=== PATIENT | female | born 1980 | race American Indian/Alaskan Native ===

== ENCOUNTER 2018-04-20 08:21 | Emergency (ER) | payer OTHER ==
[2018-04-20] MEDS ORDERED: Sodium Chloride 0.9% 10 ML Syringe FLUSH PRN (08:53)
[2018-04-20] MEDS ORDERED: Sodium Chloride 0.9% 1,000 ML IV SCH (09:00)
[2018-04-20] MEDS ORDERED: 50% Dextrose in Water 50 ML Syringe IVPUSH ONE (09:59)
[2018-04-20] MEDS ORDERED: 50% Dextrose in Water 50 ML Syringe ONE (10:00)
--- NOTE | 2018-04-20 12:08 | EDM.PDOC ---
ED HPI GENERAL MEDICAL PROBLEM - General Chief Complaint: Diabetic Complaint Stated Complaint: [facility] Time Seen by Provider: 04/20/18 08:39 Source of Information: Reports: Patient, EMS, RN Notes Reviewed - History of Present Illness INITIAL COMMENTS - FREE TEXT/NARRATIVE: 38-year-old female has been brought to our emergency department by [facility] after found to be hypoglycemic. She is a resident at the [facility]. She does have known diabetes on insulin. She was last known well at time of medication check last evening around 8:30 PM. When she did not show up this morning for medication her cell was checked and she was found on the floor unresponsive. Blood sugar was checked and found to be in the neighborhood of 40. [facility] did initiate transport but was at BLS status today. [facility] was called with [facility], IV access obtained and given one half a.m. D50 IV. With that her blood sugar did improve and she was starting to arouse but not alert on arrival to our ED. She was noted to have extremely wet clothing from apparent diaphoresis. At time of my exam patient was cold but answering simple questions and obeying simple commands appropriately. She denied chest pain headache abdominal pain, nausea or difficulty breathing. She does not remember if she ate a normal supper last evening or not. - Related Data Allergies Allergy/AdvReac Type Severity Reaction Status Date / Time codeine Allergy Difficulty Verified 04/20/18 08:42 Breathing fluoxetine [From Prozac] Allergy Difficulty Verified 04/20/18 08:42 Breathing sertraline [From Zoloft] Allergy Difficulty Verified 04/20/18 08:42 Breathing Past Medical History Genitourinary History: Reports: Other (See Below) Other Genitourinary History: chronic kidney disease Endocrine/Metabolic History: Reports: Diabetes, Type II Social & Family History - Tobacco Use Smoking Status *Q: Unknown Ever Smoked Second Hand Smoke Exposure: No - Recreational Drug Use Recreational Drug Use: Yes Other Recreational Drug Type: history of cannabis use, stimulant dependence. ED ROS GENERAL - Review of Systems Review Of Systems: See Below Constitutional: Reports: Chills, Diaphoresis, Other (Feels cold). Denies: Fever HEENT: Denies: Throat Pain Respiratory: Denies: Shortness of Breath Cardiovascular: Denies: Chest Pain GI/Abdominal: Denies: Abdominal Pain, Nausea, Vomiting Musculoskeletal: Reports: No Symptoms Skin: Reports: Diaphoresis Neurological: Reports: Dizziness ED EXAM GENERAL NO PERIP PULSE - Physical Exam Exam: See Below General Appearance: Other (Awake, still somewhat drowsy on arrival to ED) Eye Exam: Bilateral Eye: PERRL Throat/Mouth: Normal Inspection, Other (No injury to tongue) Head: Atraumatic Neck: Supple Respiratory/Chest: No Respiratory Distress, Lungs Clear, Normal Breath Sounds Cardiovascular: Regular Rate, Rhythm GI/Abdominal: Soft, Non-Tender Extremities: Normal Inspection Neurological: Other (Awake but somewhat drowsy on arrival to ED, answer simple questions, obeys simple commands) Course - Vital Signs Last Recorded V/S: Last Vital Signs Temp 97.9 F 04/20/18 12:20 Pulse 89 04/20/18 12:20 Resp 16 04/20/18 12:20 BP 127/73 04/20/18 12:20 Pulse Ox 100 04/20/18 12:20 - Orders/Labs/Meds Orders: Active Orders 24 hr Category Date Time Status POC Glucose [Blood Glucose Check, Bedside] [RC] ONETIME Care 04/20/18 08:53 Active Peripheral IV Care [RC] . DIRECTED Care 04/20/18 08:54 Active Peripheral IV Insertion Adult [OM.PC] Stat Oth 04/20/18 08:53 Ordered Labs: Laboratory Tests 04/20/18 04/20/18 04/20/18 Range/Units 09:10 09:10 09:10 WBC 5.94 (3.98-10.04) K/mm3 RBC 3.85 L (3.98-5.22) M/mm3 Hgb 11.0 L (11.2-15.7) gm/L Hct 30.7 L (34.1-44.9) % MCV 79.7 (79.4-94.8) fl MCH 28.6 (25.6-32.2) pg MCHC 35.8 H (32.2-35.5) g/dl RDW Std Deviation 37.4 (36.4-46.3) fL Plt Count 276 (182-369) K/mm3 MPV 9.2 L (9.4-12.3) fl Neut % (Auto) 49.8 (34.0-71.1) % Lymph % (Auto) 33.2 (19.3-51.7) % [place]ell % (Auto) 8.6 (4.7-12.5) % Eos % (Auto) 7.7 H (0.7-5.8) Baso % (Auto) 0.5 (0.1-1.2) % Neut # (Auto) 2.96 (1.56-6.13) K/mm3 Lymph # (Auto) 1.97 (1.18-3.74) K/mm3 Cabell # (Auto) 0.51 H (0.24-0.36) K/mm3 Eos # (Auto) 0.46 H (0.04-0.36) K/mm3 Baso # (Auto) 0.03 (0.01-0.08) K/mm3 Sodium 136 (136-145) mEq/L Potassium 3.9 (3.5-5.1) mEq/L Chloride 105 (98-107) mEq/L Carbon Dioxide 22 (21-32) mEq/L Anion Gap 12.9 (5-15) BUN 35 H (7-18) mg/dL Creatinine 1.8 H (0.55-1.02) mg/dL Est Cr Clr Drug Dosing 40.81 mL/min Estimated GFR (MDRD) 31 (>60) mL/min BUN/Creatinine Ratio 19.4 H (14-18) Glucose 85 (74-106) mg/dL POC Glucose (70-105) mg/dL Lactic Acid 0.4 (0.4-2.0) mmol/L Calcium 8.6 (8.5-10.1) mg/dL Total Bilirubin 0.2 (0.2-1.0) mg/dL AST 40 H (15-37) U/L ALT 48 (14-59) U/L Alkaline Phosphatase 108 (46-116) U/L Total Protein 6.8 (6.4-8.2) g/dl Albumin 1.5 L (3.4-5.0) g/dl Globulin 5.3 gm/dL Albumin/Globulin Ratio 0.3 L (1-2) 04/20/18 Range/Units 11:26 WBC (3.98-10.04) K/mm3 RBC (3.98-5.22) M/mm3 Hgb (11.2-15.7) gm/L Hct (34.1-44.9) % MCV (79.4-94.8) fl MCH (25.6-32.2) pg MCHC (32.2-35.5) g/dl RDW Std Deviation (36.4-46.3) fL Plt Count (182-369) K/mm3 MPV (9.4-12.3) fl Neut % (Auto) (34.0-71.1) % Lymph % (Auto) (19.3-51.7) % Cabell % (Auto) (4.7-12.5) % Eos % (Auto) (0.7-5.8) Baso % (Auto) (0.1-1.2) % Neut # (Auto) (1.56-6.13) K/mm3 Lymph # (Auto) (1.18-3.74) K/mm3 Cabell # (Auto) (0.24-0.36) K/mm3 Eos # (Auto) (0.04-0.36) K/mm3 Baso # (Auto) (0.01-0.08) K/mm3 Sodium (136-145) mEq/L Potassium (3.5-5.1) mEq/L Chloride (98-107) mEq/L Carbon Dioxide (21-32) mEq/L Anion Gap (5-15) BUN (7-18) mg/dL Creatinine (0.55-1.02) mg/dL Est Cr Clr Drug Dosing mL/min Estimated GFR (MDRD) (>60) mL/min BUN/Creatinine Ratio (14-18) Glucose (74-106) mg/dL POC Glucose 132 H (70-105) mg/dL Lactic Acid (0.4-2.0) mmol/L Calcium (8.5-10.1) mg/dL Total Bilirubin (0.2-1.0) mg/dL AST (15-37) U/L ALT (14-59) U/L Alkaline Phosphatase (46-116) U/L Total Protein (6.4-8.2) g/dl Albumin (3.4-5.0) g/dl Globulin gm/dL Albumin/Globulin Ratio (1-2) Meds: Medications Discontinued Medications Generic Name Dose Route Start Last Admin Trade Name Freq PRN Reason Stop Dose Admin Dextrose/Water 25 ml 04/20/18 09:59 04/20/18 10:05 Dextrose 50% In Water IVPUSH 04/20/18 10:00 25 ml ONETIME ONE Administration Dextrose/Water Confirm 04/20/18 10:00 04/20/18 10:08 Dextrose 50% In Water Administered 04/20/18 10:01 Not Given Dose 50 ml .ROUTE .STK-MED ONE Sodium Chloride 1,000 mls @ 999 mls/hr 04/20/18 09:00 04/20/18 09:55 Normal Saline IV 999 mls/hr ONETIME GARETH Administration Sodium Chloride 10 ml 04/20/18 08:53 04/20/18 10:07 Saline Flush FLUSH 10 ml ASDIRECTED PRN Administration Keep Vein Open - Re-Assessments/Exams Free Text/Narrative Re-Assessment/Exam: 04/20/18 18:57 Initial temp for head was only 85, patient was already covered with warm like a second there of your started at time of my exam not long after patient arrival. We did get a rectal exam a short time after that which was only 89. 4 we did continue with the bear hugger, warm blankets, warmed IV the bags along her trunk and her temp did, over the next 2-3 hours to normal. Within a few hours of arrival she was eating drinking, back to normal. Discharge instr. as documented. Departure - Departure Time of Disposition: 12:07 Disposition: Home, Self-Care 01 Condition: Fair Clinical Impression: Hypoglycemia Hypothermia Qualifiers: Encounter type: initial encounter Qualified Code(s): T68.XXXA - Hypothermia, initial encounter - Discharge Information Instructions: Hypothermia, Hypoglycemia, [id number] Referrals: PCP,None [Primary Care Provider] - Forms: ED Department Discharge Additional Instructions: Eat regular meals and snacks, continue current medications as prescribed, follow -up with your medical provider as needed - My Orders Last 24 Hours: My Active Orders 04/20/18 08:53 POC Glucose [Blood Glucose Check, Bedside] [RC] ONETIME Peripheral IV Insertion Adult [OM.PC] Stat 04/20/18 08:54 Peripheral IV Care [RC] . DIRECTED - Assessment/Plan Last 24 Hours: My Active Orders 04/20/18 08:53 POC Glucose [Blood Glucose Check, Bedside] [RC] ONETIME Peripheral IV Insertion Adult [OM.PC] Stat 04/20/18 08:54 Peripheral IV Care [RC] . DIRECTED
== END 2018-04-20 12:25 | disposition home or self-care (01) ==
LOC: JD.ED 08:21
DX: E11.649 Type 2 diabetes mellitus with hypoglycemia without coma (principal); T68.XXXA Hypothermia, initial encounter; E11.22 Type 2 diabetes mellitus with diabetic chronic kidney disease; Z88.5 Allergy status to narcotic agent; Z88.8 Allergy status to other drugs, medicaments and biological substances; N18.9 Chronic kidney disease, unspecified
CPT/HCPCS: 36415; 80053; 82962; 83605; 85025; 96361; 96374; 99285; J7040; J7060; 99284

== ENCOUNTER 2018-06-16 19:00 | Emergency (ER) | payer OTHER ==
[2018-06-16] MEDS ORDERED: Sodium Chloride 0.9% 10 ML Syringe FLUSH PRN (20:13)
[2018-06-16] MEDS ORDERED: Ketorolac 30 MG/ML SDV IVPUSH ONE (20:14)
[2018-06-16] MEDS ORDERED: cefTRIAXone 2 GM in Sodium Chloride 0.9% 100 ML IV ONE (20:14)
--- NOTE | 2018-06-16 20:33 | EDM.PDOC ---
ED HPI GENERAL MEDICAL PROBLEM - General Chief Complaint: Lower Extremity Injury/Pain Stated Complaint: LEFT FOOT/TOE PAIN SWELLING Time Seen by Provider: 06/16/18 19:48 Source of Information: Reports: Patient, RN Notes Reviewed History Limitations: Reports: No Limitations - History of Present Illness INITIAL COMMENTS - FREE TEXT/NARRATIVE: Patient is a 38-year-old female who presents to the ED for the evaluation of left fourth toe pain. The patient is an inmate at the [facility]. The patient has a sore to the fourth toe on her left foot and it has been present for around one month now. The nurses at the facility have been using iodoform packing and doing wound changes twice a day. Today the patient noticed swelling to the left foot/ankle with increased pain that shoots up to her left knee. The patient notes she is diabetic and takes insulin. The patient denies any fever/chills, nausea/vomiting/diarrhea, chest pain, shortness of breath. She would rate her pain at a 7 out of 10 today. Left Feet Pain Score (Numeric/FACES): 7 - Related Data Allergies Allergy/AdvReac Type Severity Reaction Status Date / Time codeine Allergy Difficulty Verified 06/16/18 19:35 Breathing fluoxetine [From Prozac] Allergy Difficulty Verified 06/16/18 19:35 Breathing sertraline [From Zoloft] Allergy Difficulty Verified 06/16/18 19:35 Breathing shellfish derived Allergy Hives Verified 06/16/18 19:35 Home Meds: Home Meds Carvedilol [Coreg] 25 mg PO DAILY 06/16/18 [History] DULoxetine [Cymbalta] 30 mg PO BID 06/16/18 [History] Doxycycline [Vibramycin] 100 mg PO BID #28 tab 06/16/18 [Rx] Furosemide 40 mg PO DAILY 06/16/18 [History] Insulin Aspart [NovoLOG] 0 units SQ TID 06/16/18 [History] Insulin Detemir [Levemir] 15 units SQ DAILY 06/16/18 [History] Lisinopril 20 mg PO BID 06/16/18 [History] Mineral Oil/Petrolatum,White [Dermacerin] 1 gm TOP TID 06/16/18 [History] Pantoprazole [ProTONIX] 40 mg PO DAILY 06/16/18 [History] amLODIPine Besylate [Amlodipine Besylate] 10 mg PO DAILY 06/16/18 [History] atorvaSTATin [Lipitor] 80 mg PO BEDTIME 06/16/18 [History] hydrOXYzine HCl [hydrOXYzine] 25 mg PO BID 06/16/18 [History] Past Medical History HEENT History: Reports: Impaired Vision Cardiovascular History: Reports: High Cholesterol, Hypertension Respiratory History: Reports: Asthma Gastrointestinal History: Reports: Other (See Below) Other Gastrointestinal History: liver disease Genitourinary History: Reports: Other (See Below) Other Genitourinary History: chronic kidney disease 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: Musculoskeletal History: Reports: Other (See Below) Other Musculoskeletal History: broke L foot Neurological History: Reports: Headaches, Chronic, Neuropathy, Diabetic Psychiatric History: Reports: Addiction, Anxiety, Depression Endocrine/Metabolic History: Reports: Diabetes, Type II Immunologic History: Reports: Other (See Below) Other Immunologic History: viral hep C Oncologic (Cancer) History: Reports: Other (See Below) Other Oncologic History: stomach Dermatologic History: Reports: Eczema - Infectious Disease History Infectious Disease History: Reports: Chicken Pox, Hepatitis C - Past Surgical History HEENT Surgical History: Reports: Tonsillectomy, Other (See Below) Other HEENT Surgeries/Procedures: wisdom teeth Female Surgical History: Reports: Section, Other (See Below) Other Female Surgeries/Procedures: hysterectomy Social & Family History - Family History Family Medical History: Noncontributory - Tobacco Use Smoking Status *Q: Former Smoker Used Tobacco, but Quit: Yes Month/Year Tobacco Last Used: 02/2018 - Caffeine Use Caffeine Use: Reports: Coffee, Tea - Recreational Drug Use Recreational Drug Use: No Review of Systems - Review of Systems Review Of Systems: See Below Constitutional: Reports: No Symptoms Eyes: Reports: No Symptoms Ears: Reports: No Symptoms Nose: Reports: No Symptoms Mouth/Throat: Reports: No Symptoms Respiratory: Reports: No Symptoms Cardiovascular: Reports: No Symptoms GI/Abdominal: Reports: No Symptoms Genitourinary: Reports: No Symptoms Musculoskeletal: Reports: Foot Pain (Left foot), Joint Pain (left ankle and 4th left toe), Joint Swelling (left ankle, foot and 4th left toe) Skin: Reports: No Symptoms Neurological: Reports: No Symptoms Psychiatric: Reports: No Symptoms ED EXAM, GENERAL - Physical Exam Exam: See Below Exam Limited By: No Limitations General Appearance: Alert, WD/WN, Mild Distress (patient is in obvious pain) Eye Exam: Bilateral Eye: EOMI, Normal Inspection, PERRL Ears: Normal External Exam Nose: Normal Inspection Throat/Mouth: Normal Inspection, Normal Oropharynx, Normal Voice, No Airway Compromise Head: Atraumatic, Normocephalic Neck: Normal Inspection Respiratory/Chest: No Respiratory Distress, Lungs Clear, Normal Breath Sounds, No Accessory Muscle Use, Chest Non-Tender Cardiovascular: Normal Peripheral Pulses, Regular Rate, Rhythm, No Murmur GI/Abdominal: Normal Bowel Sounds, Soft, Non-Tender, No Distention Extremities: Joint Swelling (left 4th toe, left foot and ankle. this is at least 2+ edema), Limited Range of Motion (d/t pain and swelling in left 4th toe ), Increased Warmth (left foot) Neurological: Alert, Oriented, Normal Cognition, No Motor/Sensory Deficits Psychiatric: Normal Affect, Normal Mood Skin Exam: Warm, Dry, Intact, Normal Color, No Rash Course - Vital Signs Last Recorded V/S: Last Vital Signs Temp 97.7 F 06/16/18 19:29 Pulse 81 06/16/18 19:29 Resp 20 06/16/18 19:29 BP 121/79 06/16/18 19:29 Pulse Ox 99 06/16/18 19:29 - Orders/Labs/Meds Orders: Active Orders 24 hr Category Date Time Status Peripheral IV Care [RC] . DIRECTED Care 06/16/18 20:13 Ordered Toes Fourth Digit Lt T3 [CR] Stat Exams 06/16/18 20:12 Ordered Toes Fourth Digit Lt T3 [CR] Stat Exams 06/16/18 20:12 Stop Req Sodium Chloride 0.9% [Saline Flush] Med 06/16/18 20:13 Ordered 10 ml FLUSH ASDIRECTED PRN Peripheral IV Insertion Adult [OM.PC] Routine Oth 06/16/18 20:13 Ordered Medication Orders Sodium Chloride (Saline Flush) 10 ml FLUSH ASDIRECTED PRN PRN Reason: Keep Vein Open Last Admin: 06/16/18 20:30 Dose: 10 ml Meds: Medications Generic Name Dose Route Start Last Admin Trade Name Freq PRN Reason Stop Dose Admin Sodium Chloride 10 ml 06/16/18 20:13 06/16/18 20:30 Saline Flush FLUSH 10 ml ASDIRECTED PRN Administration Keep Vein Open Discontinued Medications Generic Name Dose Route Start Last Admin Trade Name Miko PRN Reason Stop Dose Admin Ceftriaxone Sodium 2 gm/ 100 mls @ 200 mls/hr 06/16/18 20:14 06/16/18 20:29 Sodium Chloride IV 06/16/18 20:43 200 mls/hr Q24H ONE Administration Ketorolac Tromethamine 30 mg 06/16/18 20:14 06/16/18 20:29 Toradol IVPUSH 06/16/18 20:15 30 mg ONETIME ONE Administration - Re-Assessments/Exams Free Text/Narrative Re-Assessment/Exam: 06/16/18 20:35 Patient presents to the ED for the evaluation of left fourth toe and left foot pain. This is developed into cellulitis of the left foot. I have ordered a toe x-ray to make sure this is not osteomyelitis due to the length of time that the sore is present. Have ordered 2 g IV Rocephin with 30 mg IV Toradol for management. Will send a prescription for doxycycline 100 mg twice a day for 14 days to the [place] pharmacy. 06/16/18 21:33 Pt. x-rays have returned and reviewed with Dr. Castellano, he thinks there may be a small bony erosion on the lateral side of the 4th left digit. He recommends that the patient follow up with Dr. Hernandez for a debridement of the wound. Departure - Departure Time of Disposition: 21:28 Disposition: DC/Tfer to Court of Law En 21 Condition: Fair Clinical Impression: Toe infection - Discharge Information *PRESCRIPTION DRUG MONITORING PROGRAM REVIEWED*: No *COPY OF PRESCRIPTION DRUG MONITORING REPORT IN PATIENT MIGUEL: No Prescriptions: Doxycycline [Vibramycin] 100 mg PO BID #28 tab Instructions: Crutch Use, Adult, [id number], Cellulitis, Adult, [id number] Referrals: Christie Wade PA-C [Primary Care Provider] - Forms: ED Department Discharge, ED Return to Work/School Form Additional Instructions: You have been evaluated in the ED tonight for your left fourth toe pain and left foot swelling. You have been given IV antibiotics in the ED for your cellulitis. You have been prescribed an antibiotic, doxycycline 100 mg 1 tab twice a day for 14 days. Recommend that you follow up with Dr. Hernandez, radio interference investigator, for a debridement of the wound. He can be reached at [phone]. You may take ibuprofen or Tylenol for further pain relief. Please return to the ED if your symptoms change or worsen. - My Orders Last 24 Hours: My Active Orders 06/16/18 20:12 Toes Fourth Digit Lt T3 [CR] Stat Toes Fourth Digit Lt T3 [CR] Stat 06/16/18 20:13 Peripheral IV Care [RC] . DIRECTED Sodium Chloride 0.9% [Saline Flush] 10 ml FLUSH ASDIRECTED PRN Peripheral IV Insertion Adult [OM.PC] Routine - Assessment/Plan Last 24 Hours: My Active Orders 06/16/18 20:12 Toes Fourth Digit Lt T3 [CR] Stat Toes Fourth Digit Lt T3 [CR] Stat 06/16/18 20:13 Peripheral IV Care [RC] . DIRECTED Sodium Chloride 0.9% [Saline Flush] 10 ml FLUSH ASDIRECTED PRN Peripheral IV Insertion Adult [OM.PC] Routine
--- NOTE | 2018-06-17 06:32 | CR ---
Left fourth toe: Three views centered to the left fourth toe were obtained. Erosion identified within the middle phalanx of the fourth toe. Soft tissue swelling is seen. No acute fracture or other abnormality is identified. Impression: 1. Erosion as noted above. Soft tissue swelling. Findings raise the possibility of cellulitis and osteomyelitis. Please correlate if patient has correlating symptoms. Diagnostic code #3
== END 2018-06-16 21:55 ==
LOC: JD.ED 19:00
DX: L03.116 Cellulitis of left lower limb (principal); E78.00 Pure hypercholesterolemia, unspecified; I10 Essential (primary) hypertension; J45.909 Unspecified asthma, uncomplicated; F41.9 Anxiety disorder, unspecified; F32.9 Major depressive disorder, single episode, unspecified; E11.40 Type 2 diabetes mellitus with diabetic neuropathy, unspecified; Z87.891 Personal history of nicotine dependence; Z88.9 Allergy status to unspecified drugs, medicaments and biological substances; Z88.8 Allergy status to other drugs, medicaments and biological substances; Z91.013 Allergy to seafood; Z79.4 Long term (current) use of insulin; Z79.899 Other long term (current) drug therapy
CPT/HCPCS: 73660; 96365; 96375; 99283; J0696; J1885; J7030

== ENCOUNTER 2018-07-17 19:12 | Inpatient (IN) | payer OTHER ==
--- NOTE | 2018-07-17 19:36 | EDM.PDOC ---
ED HPI GENERAL MEDICAL PROBLEM - General Chief Complaint: Lower Extremity Injury/Pain Stated Complaint: foot pain Time Seen by Provider: 07/17/18 19:25 - History of Present Illness INITIAL COMMENTS - FREE TEXT/NARRATIVE: 38-year-old female returns emergency room with continued left foot problems Patient was seen here month ago started on antibiotics for this ongoing draining area from her left fourth toe medial aspect. She was started on doxycycline and was to follow-up with the foot Dr. it is unclear to me whether that's been done. Someone from the care home ordered a ankle CT that showed osteomyelitis probably involving the fourth metatarsal and digit the forefoot cannot be completely evaluated. Patient is not having any fevers or chills and does not recall having any specialty follow-up for this. She denies any fevers or chills no systemic signs of illness. Left Feet Pain Score (Numeric/FACES): 7 - Related Data Allergies Allergy/AdvReac Type Severity Reaction Status Date / Time codeine Allergy Difficulty Verified 07/17/18 19:22 Breathing fluoxetine [From Prozac] Allergy Difficulty Verified 07/17/18 19:22 Breathing sertraline [From Zoloft] Allergy Difficulty Verified 07/17/18 19:22 Breathing shellfish derived Allergy Hives Verified 07/17/18 19:22 Home Meds: Home Meds Carvedilol [Coreg] 25 mg PO DAILY 06/16/18 [History] DULoxetine [Cymbalta] 30 mg PO BID 06/16/18 [History] Doxycycline [Vibramycin] 100 mg PO BID #28 tab 06/16/18 [Rx] Furosemide 40 mg PO DAILY 06/16/18 [History] Insulin Aspart [NovoLOG] 0 units SQ BID 06/16/18 [History] Insulin Detemir [Levemir] 15 units SQ DAILY 06/16/18 [History] Lisinopril 20 mg PO BID 06/16/18 [History] Mineral Oil/Petrolatum,White [Dermacerin] 1 gm TOP TID 06/16/18 [History] Pantoprazole [ProTONIX] 40 mg PO DAILY 06/16/18 [History] amLODIPine Besylate [Amlodipine Besylate] 10 mg PO DAILY 06/16/18 [History] atorvaSTATin [Lipitor] 80 mg PO BEDTIME 06/16/18 [History] hydrOXYzine HCl [hydrOXYzine] 25 mg PO BID 06/16/18 [History] Past Medical History HEENT History: Reports: Impaired Vision Cardiovascular History: Reports: High Cholesterol, Hypertension Respiratory History: Reports: Asthma Gastrointestinal History: Reports: Other (See Below) Other Gastrointestinal History: liver disease Genitourinary History: Reports: Other (See Below) Other Genitourinary History: chronic kidney disease [employer] History: Reports: Musculoskeletal History: Reports: Other (See Below) Other Musculoskeletal History: broke L foot Neurological History: Reports: Headaches, Chronic, Neuropathy, Diabetic Psychiatric History: Reports: Addiction, Anxiety, Depression Endocrine/Metabolic History: Reports: Diabetes, Type II Immunologic History: Reports: Other (See Below) Other Immunologic History: viral hep C Oncologic (Cancer) History: Reports: Other (See Below) Other Oncologic History: stomach Dermatologic History: Reports: Eczema - Infectious Disease History Infectious Disease History: Reports: Chicken Pox, Hepatitis C - Past Surgical History HEENT Surgical History: Reports: Tonsillectomy, Other (See Below) Other HEENT Surgeries/Procedures: wisdom teeth Female Surgical History: Reports: Section, Other (See Below) Other Female Surgeries/Procedures: hysterectomy Social & Family History - Family History Family Medical History: Noncontributory - Caffeine Use Caffeine Use: Reports: Coffee, Tea Review of Systems - Review of Systems Review Of Systems: See Below Constitutional: Reports: No Symptoms Eyes: Reports: No Symptoms Nose: Reports: No Symptoms Respiratory: Reports: No Symptoms Cardiovascular: Reports: No Symptoms GI/Abdominal: Reports: No Symptoms Genitourinary: Reports: No Symptoms ED EXAM, GENERAL - Physical Exam Exam: See Below Exam Limited By: No Limitations General Appearance: Alert Head: Atraumatic, Normocephalic Respiratory/Chest: No Respiratory Distress, Lungs Clear, Normal Breath Sounds Cardiovascular: Regular Rate, Rhythm, No Edema, No Murmur GI/Abdominal: Normal Bowel Sounds, Soft, Non-Tender Extremities: Other (Examination of her foot shows swelling on the plantar surface and the dorsum the lesser degree she has drainage from the medial second toe small amount nothing really to culture at this point it appears to have been draining pulses are not palpable minimal neurologic sensation) Course - Vital Signs Last Recorded V/S: Last Vital Signs Temp 36.9 C 07/17/18 19:31 Pulse 69 07/17/18 19:31 Resp 13 07/17/18 19:31 BP 92/59 L 07/17/18 19:31 Pulse Ox 96 07/17/18 19:31 - Orders/Labs/Meds Orders: Active Orders 24 hr Category Date Time Status Foot wo Cont Lt [CT] Stat Exams 07/17/18 19:42 Taken CULTURE BLOOD [BC] Stat Lab 07/17/18 22:12 Ordered CULTURE BLOOD [BC] Stat Lab 07/17/18 22:12 Ordered TYPE AND SCREEN [BBK] Stat Lab 07/17/18 21:01 Received Levofloxacin/Dextrose 5%-Water [Levaquin in D5W 750 MG/ Med 07/17/18 22:30 Active 150 ML] 750 mg Premix Bag 1 bag IV Q48H Vancomycin 1.25 gm Med 07/17/18 22:30 Active Sodium Chloride 0.9% [Normal Saline] 250 ml IV Q24H metroNIDAZOLE/Normal Saline [Flagyl 500 MG in NS 100 ML Med 07/17/18 22:15 Active ] 500 mg Premix Bag 1 bag IV Q8H Blood Culture x2 Reflex Set [OM.PC] Stat Oth 07/17/18 22:12 Ordered Transfuse PRBC [Transfuse Red Blood Cells] [COMM] Stat Oth 07/17/18 22:04 Ordered Medication Orders Metronidazole 500 mg/ Premix 100 mls @ 100 mls/hr IV Q8H GARETH Vancomycin HCl 1.25 gm/ Sodium (Chloride) 250 mls @ 250 mls/hr IV Q24H GARETH Levofloxacin/Dextrose 750 mg/ (Premix) 150 mls @ 100 mls/hr IV Q48H [facility] Labs: Laboratory Tests 07/17/18 07/17/18 Range/Units 21:01 21:01 WBC 43.08 H (3.98-10.04) K/mm3 RBC 2.40 L (3.98-5.22) M/mm3 Hgb 6.5 L* D (11.2-15.7) gm/L Hct 19.9 L (34.1-44.9) % MCV 82.9 (79.4-94.8) fl MCH 27.1 (25.6-32.2) pg MCHC 32.7 (32.2-35.5) g/dl RDW Std Deviation 36.2 L (36.4-46.3) fL Plt Count 279 (182-369) K/mm3 MPV 9.2 L (9.4-12.3) fl Neutrophils % (Manual) 78 H (40-60) % Band Neutrophils % 13 H (0-10) % Lymphocytes % (Manual) 3 L (20-40) % Atypical Lymphs % 0 % Monocytes % (Manual) 4 (2-10) % Eosinophils % (Manual) 1 (0.7-5.8) % Basophils % (Manual) 1 (0.1-1.2) Hypersegmented Neuts Few Toxic Granulation 1+ slight Dohle Bodies Few Platelet Estimate Adequate Plt Morphology Comment See note RBC Morph Comment Normal Sodium 131 L (136-145) mEq/L Potassium 3.5 (3.5-5.1) mEq/L Chloride 101 (98-107) mEq/L Carbon Dioxide 19 L (21-32) mEq/L Anion Gap 14.5 (5-15) BUN 40 H (7-18) mg/dL Creatinine 3.1 H (0.55-1.02) mg/dL Est Cr Clr Drug Dosing 23.69 mL/min Estimated GFR (MDRD) 17 (>60) mL/min BUN/Creatinine Ratio 12.9 L (14-18) Glucose 73 L (74-106) mg/dL Calcium 8.2 L (8.5-10.1) mg/dL Total Bilirubin 0.2 (0.2-1.0) mg/dL AST 21 (15-37) U/L ALT 25 (14-59) U/L Alkaline Phosphatase 152 H (46-116) U/L Total Protein 6.2 L (6.4-8.2) g/dl Albumin 1.0 L (3.4-5.0) g/dl Globulin 5.2 gm/dL Albumin/Globulin Ratio 0.2 L (1-2) Meds: Medications Generic Name Dose Route Start Last Admin Trade Name Freq PRN Reason Stop Dose Admin Metronidazole 500 mg/ Premix 100 mls @ 100 mls/hr 07/17/18 22:15 IV Q8H GARETH Vancomycin HCl 1.25 gm/ Sodium 250 mls @ 250 mls/hr 07/17/18 22:30 Chloride IV Q24H GARETH Levofloxacin/Dextrose 750 mg/ 150 mls @ 100 mls/hr 07/17/18 22:30 Premix IV Q48H GARETH Discontinued Medications Generic Name Dose Route Start Last Admin Trade Name Miko PRN Reason Stop Dose Admin Vancomycin HCl 1.5 gm/ Sodium 250 mls @ 250 mls/hr 07/17/18 22:15 Chloride IV Q12H GARETH - Re-Assessments/Exams Free Text/Narrative Re-Assessment/Exam: 07/17/18 22:03 DT confirms osteomyelitis involving the fourth metatarsal the middle and proximal phalanx of the fourth toe. Case discussed with Dr. Das today patient will be admitted to the hospitalist service and Dr. Das today we'll see tomorrow will start IV antibiotics. Anemia and toe infection discussed with Dr. Armijo who will assume care of the patient. 07/17/18 22:10 Patient's creatinine is 3.1 nursing will discuss all her dosing of the antibiotics with pharmacy before giving the medication Departure - Departure Time of Disposition: 22:12 Disposition: Admitted As Inpatient 65 Clinical Impression: Renal insufficiency, Anemia - Discharge Information Referrals: Kobe Galan MD [Primary Care Provider] - Forms: ED Department Discharge - My Orders Last 24 Hours: My Active Orders 07/17/18 19:42 Foot wo Cont Lt [CT] Stat 07/17/18 21:01 TYPE AND SCREEN [BBK] Stat 07/17/18 22:04 Transfuse PRBC [Transfuse Red Blood Cells] [COMM] Stat 07/17/18 22:12 CULTURE BLOOD [BC] Stat CULTURE BLOOD [BC] Stat Blood Culture x2 Reflex Set [OM.PC] Stat 07/17/18 22:15 metroNIDAZOLE/Normal Saline [Flagyl 500 MG in NS 100 ML] 500 mg Premix Bag 1 bag IV Q8H 07/17/18 22:30 Levofloxacin/Dextrose 5%-Water [Levaquin in D5W 750 MG/150 ML] 750 mg Premix Bag 1 bag IV Q48H Vancomycin 1.25 gm Sodium Chloride 0.9% [Normal Saline] 250 ml IV Q24H - Assessment/Plan Last 24 Hours: My Active Orders 07/17/18 19:42 Foot wo Cont Lt [CT] Stat 07/17/18 21:01 TYPE AND SCREEN [BBK] Stat 07/17/18 22:04 Transfuse PRBC [Transfuse Red Blood Cells] [COMM] Stat 07/17/18 22:12 CULTURE BLOOD [BC] Stat CULTURE BLOOD [BC] Stat Blood Culture x2 Reflex Set [OM.PC] Stat 07/17/18 22:15 metroNIDAZOLE/Normal Saline [Flagyl 500 MG in NS 100 ML] 500 mg Premix Bag 1 bag IV Q8H 07/17/18 22:30 Levofloxacin/Dextrose 5%-Water [Levaquin in D5W 750 MG/150 ML] 750 mg Premix Bag 1 bag IV Q48H Vancomycin 1.25 gm Sodium Chloride 0.9% [Normal Saline] 250 ml IV Q24H
[2018-07-17] MEDS ORDERED: metroNIDAZOLE/Normal Saline 500 MG in Premix Bag 1 BAG IV SCH (22:15)
[2018-07-17] MEDS ORDERED: Levofloxacin/Dextrose 5%-Water 750 MG in Premix Bag 1 BAG IV SCH (22:30)
[2018-07-17] MEDS ORDERED: Albuterol/Ipratropium 3.0-0.5 MG/3 ML Neb Soln NEB PRN (23:20)
[2018-07-17] MEDS ORDERED: Bisacodyl 5 MG Tab PO PRN (23:20)
[2018-07-17] MEDS ORDERED: HYDROmorphone 1 MG/ML Syringe IVPUSH PRN (23:20)
[2018-07-17] MEDS ORDERED: LORazepam 2 MG/ML SDV IV PRN (23:20)
[2018-07-17] MEDS ORDERED: Docusate Sodium 100 MG Cap PO PRN (23:20)
[2018-07-17] MEDS ORDERED: Polyethylene Glycol 3350 Powder 17 GM Packet PO PRN (23:20)
[2018-07-17] MEDS ORDERED: Temazepam 7.5 MG Cap PO PRN (23:20)
[2018-07-17] MEDS ORDERED: hydrALAZINE 20 MG/ML SDV IVPUSH PRN (23:20)
[2018-07-17] MEDS ORDERED: Ondansetron 4 MG/2 ML SDV IV PRN (23:20)
[2018-07-17] MEDS ORDERED: Metoprolol Tartrate 5 MG/5 ML SDV IVPUSH PRN (23:20)
[2018-07-17] MEDS ORDERED: 50% Dextrose in Water 50 ML Syringe IVPUSH PRN (23:26)
[2018-07-17] MEDS ORDERED: Sodium Chloride 0.9% 500 ML IV ONE (23:30)
[2018-07-17] MEDS ORDERED: Vancomycin 500 MG SDV IV SCH (23:30)
[2018-07-17] MEDS ORDERED: Sodium Chloride 0.9% 1,000 ML IV SCH ×2 (23:30)
[2018-07-18] MEDS: Acetaminophen/HYDROcodone 325-5 MG Tab PO PRN ×3 (00:01→09:19)
[2018-07-18] MEDS ORDERED: HYDROmorphone 1 MG/ML Syringe IVPUSH PRN ×2 (00:35→22:00)
[2018-07-18] MEDS: Temazepam 15 MG Cap PO PRN (01:36)
[2018-07-18] MEDS: Potassium Chloride 20 MEQ Tab.ER PO SCH ×2 (01:36→05:53)
[2018-07-18] MEDS ORDERED: Potassium Chloride 10 MEQ in Premix Bag 1 BAG IV SCH (02:00)
[2018-07-18] MEDS ORDERED: Levofloxacin/Dextrose 5%-Water 750 MG in Premix Bag 1 BAG IV SCH (02:00)
[2018-07-18] MEDS ORDERED: Piperacillin/Tazobactam 4.5 GM in Sodium Chloride 0.9% 100 ML IV ONE (03:00)
[2018-07-18] MEDS: Pantoprazole 40 MG Tab.CR PO SCH (05:52)
[2018-07-18 07:44] LABS: HEMOGLOBIN A1C 6.8 % (4.50-6.20)
[2018-07-18] MEDS: Insulin Lispro 100 Units/ML 3 ML Vial SUBCUT SCH ×4 (08:51→22:18)
[2018-07-18] MEDS ORDERED: Lisinopril 20 MG Tab PO SCH (09:00)
[2018-07-18] MEDS ORDERED: amLODIPine 10 MG Tab PO SCH (09:00)
[2018-07-18] MEDS ORDERED: Carvedilol 12.5 MG Tab PO SCH (09:00)
[2018-07-18] MEDS ORDERED: Furosemide 40 MG Tab PO SCH (09:00)
[2018-07-18] MEDS: DULoxetine 30 MG Cap PO SCH ×2 (09:14→20:44)
[2018-07-18] MEDS: Saccharomyces Boulardii (Probiotic) 250 MG Cap PO SCH ×2 (09:14→20:44)
[2018-07-18] MEDS: hydrOXYzine HCl 25 MG Tab PO SCH ×2 (09:15→20:43)
[2018-07-18] MEDS: Insulin Glarg,Human.Rec.Analog 100 UNIT/ML ML SUBCUT SCH (09:16)
[2018-07-18] MEDS: Enoxaparin 30 MG/0.3 ML Syringe SUBCUT SCH (09:17)
[2018-07-18] MEDS ORDERED: Midodrine 5 MG Tab PO STA (09:52)
[2018-07-18] MEDS ORDERED: Sodium Chloride 0.9% 1,000 ML IV ONE ×2 (09:53→22:15)
[2018-07-18] MEDS ORDERED: Potassium Chloride 20 MEQ Tab.ER PO ONE (10:00)
[2018-07-18] MEDS ORDERED: Magnesium Sulfate/Water 4 GM in Premix Bag 1 BAG IV ONE (10:00)
[2018-07-18] MEDS: HYDROmorphone 1 MG/ML Syringe IVPUSH PRN ×2 (10:26→14:15)
--- NOTE | 2018-07-18 11:43 | CT ---
CT left foot Technique: Multiple axial sections were obtained through the left foot. Reconstructed sagittal and coronal images were obtained. Comparison: Prior plain film study of 06/16/18. Findings: Destructive lesion is noted within the distal shaft and head of the fourth metatarsal compatible with osteomyelitis. Pathologic fracture is present. Proximal and mid phalanx show destruction within the fourth toe. Small erosion also noted within the head of the fifth metatarsal. Diffuse surrounding soft tissue swelling is present. Impression: 1. Bony destruction of the middle and proximal phalanx of the fourth toe as well as of the distal shaft and head of the fourth metatarsal. Findings most likely represent osteomyelitis. Findings have significantly worsened from previous exam. 2. Minimal erosion within the distal fifth metatarsal head compatible with additional early area of osteomyelitis. 3. Diffuse soft tissue swelling. Diagnostic code #5 I agree with preliminary report from [facility], finalized on 07/17/18, 10:46 PM Central Time [facility]
[2018-07-18] MEDS: Piperacillin/Tazobactam 4.5 GM in Sodium Chloride 0.9% 100 ML IV SCH ×2 (12:20→18:37)
[2018-07-18] MEDS: Midodrine 5 MG Tab PO SCH ×2 (12:20→17:40)
[2018-07-18] MEDS: Sodium Chloride 0.9% 1,000 ML IV SCH ×3 (13:22→21:23)
--- NOTE | 2018-07-18 15:37 | MR ---
MRI left foot Technique: T1, fat suppressed inversion recovery sagittal; T2 and T2 fat suppressed coronal; T1 and T2 fat suppressed axial Technologist's note: Patient had extremely hard time holding still, sequences were repeated many times Comparison: Prior CT study of the left foot dated 07/17/18. Findings: Motion artifact is seen diminishing details. Bone marrow edema is noted within the shaft of the fourth metatarsal. Mild bone marrow edema is seen within the distal fifth metatarsal. Diffuse soft tissue swelling is seen within the foot which is asymmetrically worse around the fourth and fifth digits. No definite fluid collections are seen to indicate abscess. No additional bony abnormality is appreciated. Impression: 1. Bone marrow edema within the shaft of the fourth metatarsal as well as within the distal fifth metatarsal. Findings are compatible with osteomyelitis. 2. Diffuse soft tissue swelling asymmetrically worse around the fourth and fifth toes. This is compatible with prominent cellulitis. Diagnostic code #3
--- NOTE | 2018-07-18 15:52 | PCM.HP ---
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 She was seen in ED about a month ago due to draining lesion at the medial aspect of her foot. She was treated with oral Doxycycline and was told to follow up with Dr. Hernandez. Unfortunately, she did not get around to it. However a CT scan of her foot revealed osteomyelitis. She comes back to ED for worsening symptoms. She denies having any fever or chills. Her initial work up shows a CBC remarkable for WBC of 43.08, RBC of 2.40, Hgb of 6.5, Hct of 19.9, RDW of 36.2, MPV of 9.2, Neutrophils of 78%, with Bands of 13% and Lymphocytes of 3%. Her Chemistry is significant for Na of 131, CO2 of 19 , BUN of 40, Cr of 3.1, BS of 73, Ca of 8.2, Alk Phos, 152, CRP of 20.2, Total Protein of 6.2, and Albumin of 1.0. Her UA is not suggestive of UTI. Foot CT scan report read osteolytic process affecting 4th digit. Foot MRI report reads bone marrow edema within the shaft of the fourth metatarsal as well as within the distal 5th metatarsal. Findings are compatible with osteomyelitis. Diffuse soft tissue swelling asymmetrically worse around the 4th and 5th toes. This is compatible with prominent cellulitis. Patient was admitted overnight for Left Foot Cellulitis with Osteomyelitis. Left Feet Pain Score (Numeric/FACES): 7 - Related Data Allergies/Adverse Reactions: Allergies Allergy/AdvReac Type Severity Reaction Status Date / Time codeine Allergy Difficulty Verified 07/18/18 02:55 Breathing fluoxetine [From Prozac] Allergy Difficulty Verified 07/18/18 02:55 Breathing sertraline [From Zoloft] Allergy Difficulty Verified 07/18/18 02:55 Breathing shellfish derived Allergy Hives Verified 07/18/18 02:55 Home Medications: Home Meds Carvedilol [Coreg] 25 mg PO DAILY 06/16/18 [History] DULoxetine [Cymbalta] 30 mg PO BID 06/16/18 [History] Furosemide 40 mg PO DAILY 06/16/18 [History] Insulin Aspart [NovoLOG] 0 units SQ BID 06/16/18 [History] Insulin Detemir [Levemir] 15 units SQ DAILY 06/16/18 [History] Lisinopril 20 mg PO BID 06/16/18 [History] Pantoprazole [ProTONIX] 40 mg PO DAILY 06/16/18 [History] amLODIPine Besylate [Amlodipine Besylate] 10 mg PO DAILY 06/16/18 [History] atorvaSTATin [Lipitor] 80 mg PO BEDTIME 06/16/18 [History] hydrOXYzine HCl [hydrOXYzine] 25 mg PO BID 06/16/18 [History] Acetaminophen [Tylenol] 650 mg PO Q4HR PRN 07/18/18 [History] Ibuprofen [Ibu] 600 mg PO TID 07/18/18 [History] Non-Formulary Medication [NF Drug] 500 mg PO TID 07/18/18 [History] Past Medical History HEENT History: Reports: Impaired Vision Cardiovascular History: Reports: High Cholesterol, Hypertension Respiratory History: Reports: Asthma Gastrointestinal History: Reports: Other (See Below) Other Gastrointestinal History: liver disease Genitourinary History: Reports: Other (See Below) Other Genitourinary History: chronic kidney disease 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: Musculoskeletal History: Reports: Other (See Below) Other Musculoskeletal History: broke L foot Neurological History: Reports: Headaches, Chronic, Neuropathy, Diabetic Psychiatric History: Reports: Addiction, Anxiety, Depression Endocrine/Metabolic History: Reports: Diabetes, Type II Hematologic History: Reports: Anemia Other Hematologic History: pt states back in 2000 dx with anemia Immunologic History: Reports: Other (See Below) Other Immunologic History: viral hep C Oncologic (Cancer) History: Reports: Other (See Below) Other Oncologic History: stomach Dermatologic History: Reports: Eczema - Infectious Disease History Infectious Disease History: Reports: Chicken Pox, Hepatitis C - Past Surgical History HEENT Surgical History: Reports: Tonsillectomy, Other (See Below) Other HEENT Surgeries/Procedures: wisdom teeth Cardiovascular Surgical History: Reports: None Female Surgical History: Reports: Section, Other (See Below) Other Female Surgeries/Procedures: hysterectomy Social & Family History - Family History Family Medical History: Noncontributory - Tobacco Use Smoking Status *Q: Former Smoker Used Tobacco, but Quit: Yes Month/Year Tobacco Last Used: mar 2018 - Caffeine Use Caffeine Use: Reports: Coffee, Tea - Recreational Drug Use Recreational Drug Use: No H&P Review of Systems - Review of Systems: Review Of Systems: ROS reveals no pertinent complaints other than HPI. Exam - Exam Exam: See Below - Vital Signs Vital Signs: Last Vital Signs Temp 37.4 C 07/18/18 09:15 Pulse 70 07/18/18 11:52 Resp 16 07/18/18 11:52 BP 83/53 L 07/18/18 11:53 Pulse Ox 95 07/18/18 11:52 Weight: 84.64 kg - Exam General: Alert, Oriented, Moderate Distress HEENT: Conjunctiva Clear, EACs Clear, EOMI, Hearing Intact, Mucosa Moist & [place] , Nares Patent, Normal Nasal Septum, Posterior Pharynx Clear, Pupils Equal, Pupils Reactive Neck: Supple, Trachea Midline Lungs: Clear to Auscultation, Normal Respiratory Effort Cardiovascular: Regular Rate, Regular Rhythm GI/Abdominal Exam: Normal Bowel Sounds, Soft, Non-Tender, No Organomegaly, No Distention, No Abnormal Bruit, No Mass, Pelvis Stable (Female) Exam: Deferred Rectal (Female) Exam: Deferred Back Exam: Normal Inspection, Decreased Range of Motion Extremities: Normal Range of Motion, Pedal Edema Peripheral Pulses: 2+: Posterior Tibial (R), Dorsalis Pedis (R) Skin: Warm, Dry, Intact Skin Alteration Location (Drawings Not To Scale): 1 - swollen, erythematous and tender on palpation Neuro Extensive - Mental Status: Oriented x3, Normal Cognition, Memory Intact Neuro Extensive - Motor, Sensory, Reflexes: CN II-XII Intact, Abnormal Gait Psychiatric: Alert, Normal Affect, Normal Mood - Patient Data Lab Results Last 24 hrs: Laboratory Results - last 24 hr 07/17/18 07/17/18 07/17/18 Range/Units 21:01 21:01 21:01 WBC 43.08 H (3.98-10.04) K/mm3 RBC 2.40 L (3.98-5.22) M/mm3 Hgb 6.5 L* D (11.2-15.7) gm/L Hct 19.9 L (34.1-44.9) % MCV 82.9 (79.4-94.8) fl MCH 27.1 (25.6-32.2) pg MCHC 32.7 (32.2-35.5) g/dl RDW Std Deviation 36.2 L (36.4-46.3) fL Plt Count 279 (182-369) K/mm3 MPV 9.2 L (9.4-12.3) fl Neut % (Auto) (34.0-71.1) % Lymph % (Auto) (19.3-51.7) % [place] % (Auto) (4.7-12.5) % Eos % (Auto) (0.7-5.8) Baso % (Auto) (0.1-1.2) % Neut # (Auto) (1.56-6.13) K/mm3 Lymph # (Auto) (1.18-3.74) K/mm3 [place] # (Auto) (0.24-0.36) K/mm3 Eos # (Auto) (0.04-0.36) K/mm3 Baso # (Auto) (0.01-0.08) K/mm3 Neutrophils % (Manual) 78 H (40-60) % Band Neutrophils % 13 H (0-10) % Lymphocytes % (Manual) 3 L (20-40) % Atypical Lymphs % 0 % Monocytes % (Manual) 4 (2-10) % Eosinophils % (Manual) 1 (0.7-5.8) % Basophils % (Manual) 1 (0.1-1.2) Manual Slide Review Hypersegmented Neuts Few Toxic Granulation 1+ slight Dohle Bodies Few Platelet Estimate Adequate Plt Morphology Comment See note RBC Morph Comment Normal Sodium 131 L (136-145) mEq/L Potassium 3.5 (3.5-5.1) mEq/L Chloride 101 (98-107) mEq/L Carbon Dioxide 19 L (21-32) mEq/L Anion Gap 14.5 (5-15) BUN 40 H (7-18) mg/dL Creatinine 3.1 H (0.55-1.02) mg/dL Est Cr Clr Drug Dosing 23.69 mL/min Estimated GFR (MDRD) 17 (>60) mL/min BUN/Creatinine Ratio 12.9 L (14-18) Glucose 73 L (74-106) mg/dL POC Glucose (70-105) mg/dL Hemoglobin A1c (4.50-6.20) % Lactic Acid (0.4-2.0) mmol/L Calcium 8.2 L (8.5-10.1) mg/dL Magnesium (1.8-2.4) mg/dl Total Bilirubin 0.2 (0.2-1.0) mg/dL AST 21 (15-37) U/L ALT 25 (14-59) U/L Alkaline Phosphatase 152 H (46-116) U/L C-Reactive Protein (<1.0) mg/dL Total Protein 6.2 L (6.4-8.2) g/dl Albumin 1.0 L (3.4-5.0) g/dl Globulin 5.2 gm/dL Albumin/Globulin Ratio 0.2 L (1-2) Triglycerides (<150) mg/dL Cholesterol (<200) mg/dL LDL Cholesterol Direct (<100) mg/dL HDL Cholesterol (40-59) mg/dL MRSA (PCR) Blood Type O POSITIVE Gel Antibody Screen Negative Crossmatch See Detail 07/17/18 07/18/18 07/18/18 Range/Units 21:01 03:07 06:10 WBC 40.26 H (3.98-10.04) K/mm3 RBC 3.04 L (3.98-5.22) M/mm3 Hgb 8.6 L D (11.2-15.7) gm/L Hct 25.2 L (34.1-44.9) % MCV 82.9 (79.4-94.8) fl MCH 28.3 (25.6-32.2) pg MCHC 34.1 (32.2-35.5) g/dl RDW Std Deviation 38.5 (36.4-46.3) fL Plt Count 288 (182-369) K/mm3 MPV 9.3 L (9.4-12.3) fl Neut % (Auto) 90.5 H (34.0-71.1) % Lymph % (Auto) 3.1 L (19.3-51.7) % [place] % (Auto) 4.8 (4.7-12.5) % Eos % (Auto) 0.8 (0.7-5.8) Baso % (Auto) 0.0 L (0.1-1.2) % Neut # (Auto) 36.44 H (1.56-6.13) K/mm3 Lymph # (Auto) 1.23 (1.18-3.74) K/mm3 [place] # (Auto) 1.92 H (0.24-0.36) K/mm3 Eos # (Auto) 0.33 (0.04-0.36) K/mm3 Baso # (Auto) 0.02 (0.01-0.08) K/mm3 Neutrophils % (Manual) (40-60) % Band Neutrophils % (0-10) % Lymphocytes % (Manual) (20-40) % Atypical Lymphs % % Monocytes % (Manual) (2-10) % Eosinophils % (Manual) (0.7-5.8) % Basophils % (Manual) (0.1-1.2) Manual Slide Review Abnormal smear Hypersegmented Neuts Toxic Granulation Dohle Bodies Platelet Estimate Plt Morphology Comment RBC Morph Comment Sodium (136-145) mEq/L Potassium (3.5-5.1) mEq/L Chloride (98-107) mEq/L Carbon Dioxide (21-32) mEq/L Anion Gap (5-15) BUN (7-18) mg/dL Creatinine (0.55-1.02) mg/dL Est Cr Clr Drug Dosing mL/min Estimated GFR (MDRD) (>60) mL/min BUN/Creatinine Ratio (14-18) Glucose (74-106) mg/dL POC Glucose (70-105) mg/dL Hemoglobin A1c (4.50-6.20) % Lactic Acid (0.4-2.0) mmol/L Calcium (8.5-10.1) mg/dL Magnesium (1.8-2.4) mg/dl Total Bilirubin (0.2-1.0) mg/dL AST (15-37) U/L ALT (14-59) U/L Alkaline Phosphatase (46-116) U/L C-Reactive Protein 20.2 H* (<1.0) mg/dL Total Protein (6.4-8.2) g/dl Albumin (3.4-5.0) g/dl Globulin gm/dL Albumin/Globulin Ratio (1-2) Triglycerides (<150) mg/dL Cholesterol (<200) mg/dL LDL Cholesterol Direct (<100) mg/dL HDL Cholesterol (40-59) mg/dL MRSA (PCR) Negative Blood Type Gel Antibody Screen Crossmatch 07/18/18 07/18/18 07/18/18 Range/Units 06:10 06:10 08:40 WBC (3.98-10.04) K/mm3 RBC (3.98-5.22) M/mm3 Hgb (11.2-15.7) gm/L Hct (34.1-44.9) % MCV (79.4-94.8) fl MCH (25.6-32.2) pg MCHC (32.2-35.5) g/dl RDW Std Deviation (36.4-46.3) fL Plt Count (182-369) K/mm3 MPV (9.4-12.3) fl Neut % (Auto) (34.0-71.1) % Lymph % (Auto) (19.3-51.7) % [place] % (Auto) (4.7-12.5) % Eos % (Auto) (0.7-5.8) Baso % (Auto) (0.1-1.2) % Neut # (Auto) (1.56-6.13) K/mm3 Lymph # (Auto) (1.18-3.74) K/mm3 [place] # (Auto) (0.24-0.36) K/mm3 Eos # (Auto) (0.04-0.36) K/mm3 Baso # (Auto) (0.01-0.08) K/mm3 Neutrophils % (Manual) (40-60) % Band Neutrophils % (0-10) % Lymphocytes % (Manual) (20-40) % Atypical Lymphs % % Monocytes % (Manual) (2-10) % Eosinophils % (Manual) (0.7-5.8) % Basophils % (Manual) (0.1-1.2) Manual Slide Review Hypersegmented Neuts Toxic Granulation Dohle Bodies Platelet Estimate Plt Morphology Comment RBC Morph Comment Sodium 130 L (136-145) mEq/L Potassium 3.3 L (3.5-5.1) mEq/L Chloride 99 (98-107) mEq/L Carbon Dioxide 16 L (21-32) mEq/L Anion Gap 18.3 H (5-15) BUN 39 H (7-18) mg/dL Creatinine 3.1 H (0.55-1.02) mg/dL Est Cr Clr Drug Dosing 23.69 mL/min Estimated GFR (MDRD) 17 (>60) mL/min BUN/Creatinine Ratio 12.6 L (14-18) Glucose 100 (74-106) mg/dL POC Glucose 142 H (70-105) mg/dL Hemoglobin A1c 6.80 H (4.50-6.20) % Lactic Acid (0.4-2.0) mmol/L Calcium 7.4 L (8.5-10.1) mg/dL Magnesium 1.4 L (1.8-2.4) mg/dl Total Bilirubin (0.2-1.0) mg/dL AST (15-37) U/L ALT (14-59) U/L Alkaline Phosphatase (46-116) U/L C-Reactive Protein 21.9 H* (<1.0) mg/dL Total Protein (6.4-8.2) g/dl Albumin (3.4-5.0) g/dl Globulin gm/dL Albumin/Globulin Ratio (1-2) Triglycerides 82 (<150) mg/dL Cholesterol 51 (<200) mg/dL LDL Cholesterol Direct 21 (<100) mg/dL HDL Cholesterol 12.0 L (40-59) mg/dL MRSA (PCR) Blood Type Gel Antibody Screen Crossmatch 07/18/18 07/18/18 Range/Units 08:45 11:38 WBC (3.98-10.04) K/mm3 RBC (3.98-5.22) M/mm3 Hgb (11.2-15.7) gm/L Hct (34.1-44.9) % MCV (79.4-94.8) fl MCH (25.6-32.2) pg MCHC (32.2-35.5) g/dl RDW Std Deviation (36.4-46.3) fL Plt Count (182-369) K/mm3 MPV (9.4-12.3) fl Neut % (Auto) (34.0-71.1) % Lymph % (Auto) (19.3-51.7) % [place] % (Auto) (4.7-12.5) % Eos % (Auto) (0.7-5.8) Baso % (Auto) (0.1-1.2) % Neut # (Auto) (1.56-6.13) K/mm3 Lymph # (Auto) (1.18-3.74) K/mm3 [place] # (Auto) (0.24-0.36) K/mm3 Eos # (Auto) (0.04-0.36) K/mm3 Baso # (Auto) (0.01-0.08) K/mm3 Neutrophils % (Manual) (40-60) % Band Neutrophils % (0-10) % Lymphocytes % (Manual) (20-40) % Atypical Lymphs % % Monocytes % (Manual) (2-10) % Eosinophils % (Manual) (0.7-5.8) % Basophils % (Manual) (0.1-1.2) Manual Slide Review Hypersegmented Neuts Toxic Granulation Dohle Bodies Platelet Estimate Plt Morphology Comment RBC Morph Comment Sodium (136-145) mEq/L Potassium (3.5-5.1) mEq/L Chloride (98-107) mEq/L Carbon Dioxide (21-32) mEq/L Anion Gap (5-15) BUN (7-18) mg/dL Creatinine (0.55-1.02) mg/dL Est Cr Clr Drug Dosing mL/min Estimated GFR (MDRD) (>60) mL/min BUN/Creatinine Ratio (14-18) Glucose (74-106) mg/dL POC Glucose 135 H (70-105) mg/dL Hemoglobin A1c (4.50-6.20) % Lactic Acid 0.8 (0.4-2.0) mmol/L Calcium (8.5-10.1) mg/dL Magnesium (1.8-2.4) mg/dl Total Bilirubin (0.2-1.0) mg/dL AST (15-37) U/L ALT (14-59) U/L Alkaline Phosphatase (46-116) U/L C-Reactive Protein (<1.0) mg/dL Total Protein (6.4-8.2) g/dl Albumin (3.4-5.0) g/dl Globulin gm/dL Albumin/Globulin Ratio (1-2) Triglycerides (<150) mg/dL Cholesterol (<200) mg/dL LDL Cholesterol Direct (<100) mg/dL HDL Cholesterol (40-59) mg/dL MRSA (PCR) Blood Type Gel Antibody Screen Crossmatch Result Diagrams: 07/19/18 05:10 07/19/18 05:10 Problem List Initiated/Reviewed/Updated: Yes Orders Last 24hrs: Active Orders 24 hr Category Date Time Status Admission Status [Patient Status] [ADT] Routine ADT 07/17/18 22:28 Active Blood Glucose Check, Bedside [RC] QIDACANDBED Care 07/17/18 23:26 Active Height and Weight [RC] 04 Care 07/17/18 23:20 Active Intake and Output [RC] 04,16 Care 07/17/18 23:21 Active Notify Provider Consults [RC] ASDIRECTED Care 07/17/18 23:24 Active Oxygen Therapy [RC] PRN Care 07/17/18 23:20 Active RT Aerosol Therapy [RC] ASDIRECTED Care 07/17/18 23:22 Active Up With Assistance [RC] ASDIRECTED Care 07/17/18 23:20 Active Up ad [place] [RC] ASDIRECTED Care 07/17/18 23:20 Active VTE/DVT Education [RC] PER UNIT ROUTINE Care 07/17/18 23:20 Active Vital Signs [RC] Q4HR Care 07/17/18 23:20 Active Consult to Case Management/Table Tender [CONS] Cons 07/17/18 23:20 Active Routine Consult to Diabetic Nurse Specialist [CONS] Routine Cons 07/17/18 23:20 Active Consult to Assistant Inventory Manager [CONS] Routine Cons 07/17/18 23:20 Active Consult to Physician [CONS] Routine Cons 07/17/18 23:20 Active Consult to Spiritual Care [CONS] Routine Cons 07/17/18 23:20 Active OT Evaluation and Treatment [CONS] Routine Cons 07/17/18 23:20 Active PT Evaluation and Treatment [CONS] Routine Cons 07/17/18 23:20 Active BASIC METABOLIC PANEL,BMP [CHEM] AM Lab 07/19/18 05:11 Ordered BASIC METABOLIC PANEL,BMP [CHEM] AM Lab 07/20/18 05:11 Ordered BASIC METABOLIC PANEL,BMP [CHEM] AM Lab 07/21/18 05:11 Ordered BASIC METABOLIC PANEL,BMP [CHEM] AM Lab 07/22/18 05:11 Ordered CBC WITH AUTO DIFF [HEME] AM Lab 07/19/18 05:11 Ordered CBC WITH AUTO DIFF [HEME] AM Lab 07/20/18 05:11 Ordered CBC WITH AUTO DIFF [HEME] AM Lab 07/21/18 05:11 Ordered CBC WITH AUTO DIFF [HEME] AM Lab 07/22/18 05:11 Ordered CRP [C-REACTIVE PROTEIN] [CHEM] AM Lab 07/19/18 05:11 Ordered CRP [C-REACTIVE PROTEIN] [CHEM] AM Lab 07/20/18 05:11 Ordered CRP [C-REACTIVE PROTEIN] [CHEM] AM Lab 07/21/18 05:11 Ordered CULTURE BLOOD [BC] Stat Lab 07/17/18 22:30 Received CULTURE BLOOD [BC] Stat Lab 07/17/18 22:35 Received MAGNESIUM [CHEM] AM Lab 07/19/18 05:11 Ordered MAGNESIUM [CHEM] AM Lab 07/20/18 05:11 Ordered MAGNESIUM [CHEM] AM Lab 07/21/18 05:11 Ordered MAGNESIUM [CHEM] AM Lab 07/22/18 05:11 Ordered VANCOMYCIN TROUGH [CHEM] Timed Lab 07/19/18 22:30 Ordered Acetaminophen [Tylenol] Med 07/17/18 23:20 Active 650 mg PO Q4H PRN Acetaminophen/HYDROcodone [[place] 325-5 MG] Med 07/17/18 23:20 Active 1 tab PO Q4H PRN Albuterol/Ipratropium [DuoNeb 3.0-0.5 MG/3 ML] Med 07/17/18 23:20 Active 3 ml NEB Q4H PRN Bisacodyl [Dulcolax] Med 07/17/18 23:20 Active 5 mg PO DAILY PRN Carvedilol [Coreg] Med 07/18/18 09:00 Hold 25 mg PO DAILY DULoxetine [Cymbalta] Med 07/18/18 09:00 Active 30 mg PO BID Dextrose 50% in Water Med 07/17/18 23:26 Active 50 ml IVPUSH ASDIRECTED PRN Docusate Sodium [Colace] Med 07/17/18 23:20 Active 100 mg PO BID PRN Docusate Sodium/Sennosides [Senna Plus] Med 07/17/18 23:20 Active 1 tab PO BID PRN Enoxaparin [Lovenox] Med 07/18/18 09:00 Active 30 mg SUBCUT DAILY Furosemide [Lasix] Med 07/18/18 09:00 Hold 40 mg PO DAILY HYDROmorphone [Dilaudid] Med 07/18/18 09:55 Active 2 mg IVPUSH Q4H PRN Insulin Glarg,Human.Rec.Analog [LantUS] Med 07/18/18 09:00 Active 15 unit SUBCUT DAILY Insulin Lispro [HumaLOG] Med 07/18/18 07:00 Active See Protocol SUBCUT QIDACANDBED LORazepam [Ativan] Med 07/17/18 23:20 Active 1 mg IV Q6H PRN Lisinopril [Prinivil] Med 07/18/18 09:00 Hold 20 mg PO BID Metoprolol Tartrate [Lopressor] Med 07/17/18 23:20 Active 5 mg IVPUSH Q4H PRN Midodrine Med 07/18/18 11:00 Active 5 mg PO TIDAC Ondansetron [Zofran] Med 07/17/18 23:20 Active 4 mg IV Q6H PRN Pantoprazole [ProTONIX] Med 07/18/18 06:00 Active 40 mg PO ACBREAKFAST Pharmacy to Dose - Magnesium R [Pharmacy to Dose - Med 07/17/18 23:30 Active Magnesium Replacement] 0 dose .XX ASDIRECTED PRN Pharmacy to Dose - Potassium R [Pharmacy to Dose - Med 07/17/18 23:30 Active Potassium Replacement] 0 dose .XX ASDIRECTED PRN Pharmacy to Dose - Vancomycin Med 07/17/18 23:30 Active 0 dose .XX ASDIRECTED PRN Piperacillin/Tazobactam [Piperacil-Tazobact] 4.5 gm Med 07/18/18 11:00 Active Sodium Chloride 0.9% [Normal Saline] 100 ml IV Q8H Polyethylene Glycol 3350 [MiraLAX] Med 07/17/18 23:20 Active 17 gm PO DAILY PRN Rosuvastatin [Crestor] Med 07/18/18 21:00 Active 20 mg PO BEDTIME Saccharomyces Boulardii [Florastor] Med 07/18/18 09:00 Active 250 mg PO BID Sodium Chloride 0.9% [Normal Saline] 1,000 ml Med 07/18/18 09:45 Active IV ASDIRECTED Temazepam [Restoril] Med 07/18/18 01:19 Active 15 mg PO BEDTIME PRN Vancomycin 1 gm Med 07/18/18 23:00 Active Vancomycin 250 mg Sodium Chloride 0.9% [Normal Saline] 250 ml IV Q24H amLODIPine [Norvasc] Med 07/18/18 09:00 Hold 10 mg PO DAILY hydrALAZINE [Apresoline] Med 07/17/18 23:20 Active 20 mg IVPUSH Q4H PRN hydrOXYzine HCl [Atarax] Med 07/18/18 09:00 Active 25 mg PO BID Blood Culture x2 Reflex Set [OM.PC] Stat Ot 07/17/18 22:12 Ordered Transfuse PRBC [Transfuse Red Blood Cells] [COMM] Stat Ot 07/17/18 22:04 Ordered Transfuse Red Blood Cells [COMM] Urgent Ot 07/17/18 22:26 Ordered Resuscitation Status Routine Resus Stat 07/17/18 23:20 Ordered Medication Orders Acetaminophen (Tylenol) 650 mg PO Q4H PRN PRN Reason: Pain (Mild 1-3)/fever Hydrocodone Bitart/Acetaminophen ([place] 325-5 Mg) 1 tab PO Q4H PRN PRN Reason: Pain (moderate 4-6) Last Admin: 07/18/18 09:19 Dose: 1 tab Admin: 07/18/18 04:03 Dose: 1 tab Admin: 07/18/18 00:01 Dose: 1 tab Albuterol/Ipratropium (Duoneb 3.0-0.5 Mg/3 Ml) 3 ml NEB Q4H PRN PRN Reason: Shortness Of Breath/wheezing Amlodipine Besylate (Norvasc) 10 mg PO DAILY [facility] Last Admin: 07/18/18 09:18 Dose: Not Given Bisacodyl (Dulcolax) 5 mg PO DAILY PRN PRN Reason: Constipation Carvedilol (Coreg) 25 mg PO DAILY [facility] Last Admin: 07/18/18 09:18 Dose: Not Given Dextrose/Water (Dextrose 50% In Water) 50 ml IVPUSH ASDIRECTED PRN PRN Reason: Hypoglycemia Docusate Sodium (Colace) 100 mg PO BID PRN PRN Reason: Constipation Duloxetine HCl (Cymbalta) 30 mg PO BID [facility] Last Admin: 07/18/18 09:14 Dose: 30 mg Enoxaparin Sodium (Lovenox) 30 mg SUBCUT DAILY [facility] Last Admin: 07/18/18 09:17 Dose: 30 mg Furosemide (Lasix) 40 mg PO DAILY [facility] Last Admin: 07/18/18 09:18 Dose: Not Given Hydralazine HCl (Apresoline) 20 mg IVPUSH Q4H PRN PRN Reason: Hypertension Hydromorphone HCl (Dilaudid) 2 mg IVPUSH Q4H PRN PRN Reason: Pain Last Admin: 07/18/18 10:26 Dose: 2 mg Hydroxyzine HCl (Atarax) 25 mg PO BID [facility] Last Admin: 07/18/18 09:15 Dose: 25 mg Piperacillin Sod/Tazobactam (Sod 4.5 gm/ Sodium Chloride) 100 mls @ 25 mls/hr IV Q8H [facility] Last Admin: 07/18/18 12:20 Dose: 25 mls/hr Sodium Chloride (Normal Saline) 1,000 mls @ 250 mls/hr IV ASDIRECTED [facility] Last Admin: 07/18/18 13:22 Dose: 250 mls/hr Vancomycin HCl 1 gm/Vancomycin HCl 250 mg/ Sodium Chloride 250 mls @ 166.667 mls/hr IV Q24H [facility] Insulin Glargine (Lantus) 15 unit SUBCUT DAILY [facility] Last Admin: 07/18/18 09:16 Dose: 15 units Insulin Human Lispro (Humalog) 0 unit SUBCUT QIDACANDBED [facility]; Protocol Last Admin: 07/18/18 13:37 Dose: Admin: 07/18/18 08:51 Dose: Not Given Lisinopril (Prinivil) 20 mg PO BID [facility] Last Admin: 07/18/18 09:18 Dose: Not Given Lorazepam (Ativan) 1 mg IV Q6H PRN PRN Reason: Anxiety Magnesium Sulfate (Pharmacy To Dose - Magnesium Replacement) 0 dose .XX ASDIRECTED PRN PRN Reason: RX TO WATCH MAG Metoprolol Tartrate (Lopressor) 5 mg IVPUSH Q4H PRN PRN Reason: Tachycardia Midodrine (Midodrine) 5 mg PO TIDAC [facility] Stop: 07/19/18 07:01 Last Admin: 07/18/18 12:20 Dose: 5 mg Ondansetron HCl (Zofran) 4 mg IV Q6H PRN PRN Reason: Nausea/Vomiting Last Admin: 07/18/18 13:00 Dose: 4 mg Pantoprazole Sodium (Protonix) 40 mg PO ACBREAKFAST [facility]AR[facility] Last Admin: 07/18/18 05:52 Dose: 40 mg Polyethylene Glycol (Miralax) 17 gm PO DAILY PRN PRN Reason: Constipation Potassium Chloride (Pharmacy To Dose - Potassium Replacement) 0 dose .XX ASDIRECTED PRN PRN Reason: RX TO WATCH K Rosuvastatin Calcium (Crestor) 20 mg PO BEDTIME [facility] Saccharomyces Boulardii (Florastor) 250 mg PO BID [facility] Last Admin: 07/18/18 09:14 Dose: 250 mg Senna/Docusate Sodium (Senna Plus) 1 tab PO BID PRN PRN Reason: Constipation Temazepam (Restoril) 15 mg PO BEDTIME PRN PRN Reason: Insomnia Last Admin: 07/18/18 01:36 Dose: 15 mg Vancomycin HCl (Pharmacy To Dose - Vancomycin) 0 dose .XX ASDIRECTED PRN PRN Reason: RX TO DOSE VANCO Assessment/Plan Comment:: Assessment/Plan: Acute: Sepsis with Hypotension - 2/2 Left Foot Cellulitis with Osteomyelitis - Diagnosis confirmed by both CT scan and MRI - WBC 43.08-->40.26; BP 92/69 and 90/54 mmHg and source of infection - Requiring pressor drip unresponsive to fluid challenge - LA 0.8; CRP 20.2--> 21.9 - Procalcitonin and Cortisol level - Solucortef 100 mg IVP Q6H after Cortisol level is drawn - Continue aggressive IV hydration - Is/Os to monitor volume status Left Foot Cellulitis with Osteomyelitis - Risk Factor: Poor Controlled DM2 - A1C 6.8; BS on admission 73 - On LA and SA insulin regimen - Pain control - Dr. Linn consulted for further evaluation Anemia - Anemia of acute illness - Hgb is 6.5 S/p 2 units PRBC Transfusions last night - Heme-occult test and Iron Panel in AM - Defer further work up outpatient - Hgb now is 8.6 Electrolytes Abnormality - K 3. and Mg 1.4 - 2/2 inadequate intake - Will replete and monitor Hypoalbuminemia - Albumin 1.0 - Dietary consult for malnutrition DM2 - Permissive with Hyperglycemia - A1C 6.8 - Microalbumin and Lipid Panel - Dietary and Diabetic Education - Accu-check QID with ISS Chronic: Impaired Vision HTN HLD Asthma Liver Disease CKD Likely Stage 3-4 Broken Left Foot [place] DM2 with Peripheral Neuropathy Hx/o Substance Abuse Hep C Infection Anxiety Depression Plan: Admitted overnight to [facility] Transfer to the unit to change to clinical status Routine AM Labs Resume Some Home Meds Sepsis Protocol PT/OT consult Hold all BP meds Ortho Consult DVT/GI PPx SW/CM for d/c planning Additional orders as above
[2018-07-18] MEDS: Norepinephrine 4 MG in Dextrose 5% in Water 246 ML IV SCH ×2 (17:27)
[2018-07-18] MEDS: Rosuvastatin 10 MG Tab PO SCH (20:43)
[2018-07-18] MEDS: Acetaminophen 325 MG Tab PO PRN (22:17)
[2018-07-18] MEDS: Vancomycin 1 GM, Vancomycin 250 MG in Sodium Chloride 0.9% 250 ML IV SCH (22:20)
[2018-07-18] MEDS: Hydrocortisone Sodium Succinate 100 MG/2 ML SDV IVPUSH SCH (23:26)
[2018-07-18] MEDS: Levofloxacin/Dextrose 5%-Water 500 MG in Premix Bag 1 BAG IV SCH (23:47)
[2018-07-19] MEDS: Acetaminophen/HYDROcodone 325-5 MG Tab PO PRN ×4 (01:05→16:50)
[2018-07-19] MEDS: Sodium Chloride 0.9% 1,000 ML IV SCH ×7 (02:38→23:43)
[2018-07-19] MEDS: Piperacillin/Tazobactam 4.5 GM in Sodium Chloride 0.9% 100 ML IV SCH ×3 (02:39→18:27)
[2018-07-19] MEDS: Pantoprazole 40 MG Tab.CR PO SCH (05:55)
[2018-07-19] MEDS: Hydrocortisone Sodium Succinate 100 MG/2 ML SDV IVPUSH SCH ×4 (05:56→22:23)
[2018-07-19] MEDS: Insulin Lispro 100 Units/ML 3 ML Vial SUBCUT SCH ×4 (08:15→22:29)
[2018-07-19] MEDS: Insulin Glarg,Human.Rec.Analog 100 UNIT/ML ML SUBCUT SCH (08:19)
[2018-07-19] MEDS: Saccharomyces Boulardii (Probiotic) 250 MG Cap PO SCH ×2 (08:19→20:12)
[2018-07-19] MEDS: hydrOXYzine HCl 25 MG Tab PO SCH ×2 (08:19→20:10)
[2018-07-19] MEDS: DULoxetine 30 MG Cap PO SCH ×2 (08:19→20:10)
[2018-07-19] MEDS: Midodrine 5 MG Tab PO SCH ×2 (08:19→20:08)
[2018-07-19] MEDS: Enoxaparin 30 MG/0.3 ML Syringe SUBCUT SCH (10:34)
--- NOTE | 2018-07-19 15:46 | PCM.PN ---
- General Info Date of Service: 07/19/18 Admission Dx/Problem (Free Text): Admission Diagnosis/Problem Admission Diagnosis/Problem Osteomyelitis of foot Subjective Update: Follow Up Functional Status: Reports: Pain Controlled, Tolerating Diet, Urinating. Denies : New Symptoms - Review of Systems General: Denies: Fever, Chills HEENT: Reports: No Symptoms Pulmonary: Denies: Shortness of Breath Cardiovascular: Denies: Chest Pain, Dyspnea on Exertion, Lightheadedness Gastrointestinal: Denies: Abdominal Pain, Nausea, Vomiting Genitourinary: Reports: No Symptoms Musculoskeletal: Reports: Foot Pain. Denies: Joint Swelling Skin: Denies: Jaundice, Pallor, Bruising Neurological: Reports: Difficulty Walking, Gait Disturbance. Denies: Confusion Psychiatric: Denies: Depression, Anxiety, Agitation, Hallucinations Systems Review Comment:: No significant overnight or acute issues. She is afebrile but hemodynamically unstable. Currently on levophed drip on fluid hydration. Her pain is managed with narcotics. Her procalcitonin is 5.22. - Patient Data Vitals - Most Recent: Last Vital Signs Temp 36.4 C 07/19/18 12:00 Pulse 55 L 07/19/18 12:00 Resp 16 07/19/18 12:00 BP 89/61 L 07/19/18 12:00 Pulse Ox 96 07/19/18 15:29 Weight - Most Recent: 84.64 kg I&O - Last 24 Hours: Intake & Output 07/19/18 07/19/18 07/19/18 06:59 14:59 22:59 Intake Total 4143 380 Output Total 75 115 Balance 4068 265 Lab Results Last 24 Hours: Laboratory Results - last 24 hr 07/18/18 07/18/18 07/18/18 Range/Units 16:40 16:40 17:19 WBC (3.98-10.04) K/mm3 RBC (3.98-5.22) M/mm3 Hgb (11.2-15.7) gm/L Hct (34.1-44.9) % MCV (79.4-94.8) fl MCH (25.6-32.2) pg MCHC (32.2-35.5) g/dl RDW Std Deviation (36.4-46.3) fL Plt Count (182-369) K/mm3 MPV (9.4-12.3) fl Neut % (Auto) Lymph % (Auto) [place] % (Auto) Eos % (Auto) Baso % (Auto) Neut # (Auto) Lymph # (Auto) [place] # (Auto) Eos # (Auto) Baso # (Auto) Neutrophils % (Manual) (40-60) % Band Neutrophils % (0-10) % Lymphocytes % (Manual) (20-40) % Atypical Lymphs % % Monocytes % (Manual) (2-10) % Eosinophils % (Manual) (0.7-5.8) % Basophils % (Manual) (0.1-1.2) Manual Slide Review Platelet Estimate Hypochromasia Anisocytosis RBC Morph Comment Sodium (136-145) mEq/L Potassium (3.5-5.1) mEq/L Chloride (98-107) mEq/L Carbon Dioxide (21-32) mEq/L Anion Gap (5-15) BUN (7-18) mg/dL Creatinine (0.55-1.02) mg/dL Est Cr Clr Drug Dosing mL/min Estimated GFR (MDRD) (>60) mL/min BUN/Creatinine Ratio (14-18) Glucose (74-106) mg/dL POC Glucose 135 H (70-105) mg/dL Lactic Acid (0.4-2.0) mmol/L Calcium (8.5-10.1) mg/dL Magnesium (1.8-2.4) mg/dl C-Reactive Protein (<1.0) mg/dL Urine Color Yellow (Yellow) Urine Appearance Cloudy H (Clear) Urine pH 5.5 (5.0-8.0) Ur Specific [place] 1.025 (1.005-1.030) Urine Protein 3+ H (Negative) Urine Glucose (UA) Trace H (Negative) Urine Ketones Negative (Negative) Urine Occult Blood 1+ H (Negative) Urine Nitrite Negative (Negative) Urine Bilirubin Negative (Negative) Urine Urobilinogen 0.2 (0.2-1.0) Ur Leukocyte Esterase Negative (Negative) Urine RBC Not seen (0-5) /hpf Urine WBC 0-5 (0-5) /hpf Ur Epithelial Cells 5-10 H (0-5) /hpf Amorphous Sediment Moderate H (NOT SEEN) /hpf Urine Bacteria Moderate H (FEW) /hpf Urine Mucus Few (FEW) /hpf Ur Random Creatinine 119.7 (30.0-125.0) mg/dL Ur Random Microalbumin TNP Microalb/Creat Ratio TNP 07/18/18 07/18/18 07/19/18 Range/Units 21:00 23:25 05:10 WBC 45.78 H (3.98-10.04) K/mm3 RBC 3.05 L (3.98-5.22) M/mm3 Hgb 8.6 L (11.2-15.7) gm/L Hct 25.6 L (34.1-44.9) % MCV 83.9 (79.4-94.8) fl MCH 28.2 (25.6-32.2) pg MCHC 33.6 (32.2-35.5) g/dl RDW Std Deviation 40.7 (36.4-46.3) fL Plt Count 271 (182-369) K/mm3 MPV 9.6 (9.4-12.3) fl Neut % (Auto) Cancelled Lymph % (Auto) Cancelled [place] % (Auto) Cancelled Eos % (Auto) Cancelled Baso % (Auto) Cancelled Neut # (Auto) Cancelled Lymph # (Auto) Cancelled [place] # (Auto) Cancelled Eos # (Auto) Cancelled Baso # (Auto) Cancelled Neutrophils % (Manual) 97 H (40-60) % Band Neutrophils % 0 (0-10) % Lymphocytes % (Manual) 2 L (20-40) % Atypical Lymphs % 0 % Monocytes % (Manual) 1 L (2-10) % Eosinophils % (Manual) 0 L (0.7-5.8) % Basophils % (Manual) 0 L (0.1-1.2) Manual Slide Review Cancelled Platelet Estimate Adequate Hypochromasia 2+ moderate Anisocytosis 3+ marked RBC Morph Comment Abnormal Sodium (136-145) mEq/L Potassium (3.5-5.1) mEq/L Chloride (98-107) mEq/L Carbon Dioxide (21-32) mEq/L Anion Gap (5-15) BUN (7-18) mg/dL Creatinine (0.55-1.02) mg/dL Est Cr Clr Drug Dosing mL/min Estimated GFR (MDRD) (>60) mL/min BUN/Creatinine Ratio (14-18) Glucose (74-106) mg/dL POC Glucose 163 H (70-105) mg/dL Lactic Acid 0.8 (0.4-2.0) mmol/L Calcium (8.5-10.1) mg/dL Magnesium (1.8-2.4) mg/dl C-Reactive Protein (<1.0) mg/dL Urine Color (Yellow) Urine Appearance (Clear) Urine pH (5.0-8.0) Ur Specific [place] (1.005-1.030) Urine Protein (Negative) Urine Glucose (UA) (Negative) Urine Ketones (Negative) Urine Occult Blood (Negative) Urine Nitrite (Negative) Urine Bilirubin (Negative) Urine Urobilinogen (0.2-1.0) Ur Leukocyte Esterase (Negative) Urine RBC (0-5) /hpf Urine WBC (0-5) /hpf Ur Epithelial Cells (0-5) /hpf Amorphous Sediment (NOT SEEN) /hpf Urine Bacteria (FEW) /hpf Urine Mucus (FEW) /hpf Ur Random Creatinine (30.0-125.0) mg/dL Ur Random Microalbumin Microalb/Creat Ratio 07/19/18 07/19/18 07/19/18 Range/Units 05:10 05:10 06:05 WBC (3.98-10.04) K/mm3 RBC (3.98-5.22) M/mm3 Hgb (11.2-15.7) gm/L Hct (34.1-44.9) % MCV (79.4-94.8) fl MCH (25.6-32.2) pg MCHC (32.2-35.5) g/dl RDW Std Deviation (36.4-46.3) fL Plt Count (182-369) K/mm3 MPV (9.4-12.3) fl Neut % (Auto) Lymph % (Auto) [place] % (Auto) Eos % (Auto) Baso % (Auto) Neut # (Auto) Lymph # (Auto) [place] # (Auto) Eos # (Auto) Baso # (Auto) Neutrophils % (Manual) (40-60) % Band Neutrophils % (0-10) % Lymphocytes % (Manual) (20-40) % Atypical Lymphs % % Monocytes % (Manual) (2-10) % Eosinophils % (Manual) (0.7-5.8) % Basophils % (Manual) (0.1-1.2) Manual Slide Review Platelet Estimate Hypochromasia Anisocytosis RBC Morph Comment Sodium 128 L (136-145) mEq/L Potassium 5.2 H D (3.5-5.1) mEq/L Chloride 102 (98-107) mEq/L Carbon Dioxide 11 L (21-32) mEq/L Anion Gap 20.2 H (5-15) BUN 44 H (7-18) mg/dL Creatinine 3.6 H (0.55-1.02) mg/dL Est Cr Clr Drug Dosing 20.35 mL/min Estimated GFR (MDRD) 14 (>60) mL/min BUN/Creatinine Ratio 12.2 L (14-18) Glucose 202 H (74-106) mg/dL POC Glucose 208 H (70-105) mg/dL Lactic Acid 0.6 (0.4-2.0) mmol/L Calcium 6.9 L (8.5-10.1) mg/dL Magnesium 2.3 (1.8-2.4) mg/dl C-Reactive Protein 57.8 H* (<1.0) mg/dL Urine Color (Yellow) Urine Appearance (Clear) Urine pH (5.0-8.0) Ur Specific [place] (1.005-1.030) Urine Protein (Negative) Urine Glucose (UA) (Negative) Urine Ketones (Negative) Urine Occult Blood (Negative) Urine Nitrite (Negative) Urine Bilirubin (Negative) Urine Urobilinogen (0.2-1.0) Ur Leukocyte Esterase (Negative) Urine RBC (0-5) /hpf Urine WBC (0-5) /hpf Ur Epithelial Cells (0-5) /hpf Amorphous Sediment (NOT SEEN) /hpf Urine Bacteria (FEW) /hpf Urine Mucus (FEW) /hpf Ur Random Creatinine (30.0-125.0) mg/dL Ur Random Microalbumin Microalb/Creat Ratio 07/19/ Range/Units 11:02 WBC (3.98-10.04) K/mm3 RBC (3.98-5.22) M/mm3 Hgb (11.2-15.7) gm/L Hct (34.1-44.9) % MCV (79.4-94.8) fl MCH (25.6-32.2) pg MCHC (32.2-35.5) g/dl RDW Std Deviation (36.4-46.3) fL Plt Count (182-369) K/mm3 MPV (9.4-12.3) fl Neut % (Auto) Lymph % (Auto) [place] % (Auto) Eos % (Auto) Baso % (Auto) Neut # (Auto) Lymph # (Auto) [place] # (Auto) Eos # (Auto) Baso # (Auto) Neutrophils % (Manual) (40-60) % Band Neutrophils % (0-10) % Lymphocytes % (Manual) (20-40) % Atypical Lymphs % % Monocytes % (Manual) (2-10) % Eosinophils % (Manual) (0.7-5.8) % Basophils % (Manual) (0.1-1.2) Manual Slide Review Platelet Estimate Hypochromasia Anisocytosis RBC Morph Comment Sodium (136-145) mEq/L Potassium (3.5-5.1) mEq/L Chloride (98-107) mEq/L Carbon Dioxide (21-32) mEq/L Anion Gap (5-15) BUN (7-18) mg/dL Creatinine (0.55-1.02) mg/dL Est Cr Clr Drug Dosing mL/min Estimated GFR (MDRD) (>60) mL/min BUN/Creatinine Ratio (14-18) Glucose (74-106) mg/dL POC Glucose 208 H (70-105) mg/dL Lactic Acid (0.4-2.0) mmol/L Calcium (8.5-10.1) mg/dL Magnesium (1.8-2.4) mg/dl C-Reactive Protein (<1.0) mg/dL Urine Color (Yellow) Urine Appearance (Clear) Urine pH (5.0-8.0) Ur Specific [place] (1.005-1.030) Urine Protein (Negative) Urine Glucose (UA) (Negative) Urine Ketones (Negative) Urine Occult Blood (Negative) Urine Nitrite (Negative) Urine Bilirubin (Negative) Urine Urobilinogen (0.2-1.0) Ur Leukocyte Esterase (Negative) Urine RBC (0-5) /hpf Urine WBC (0-5) /hpf Ur Epithelial Cells (0-5) /hpf Amorphous Sediment (NOT SEEN) /hpf Urine Bacteria (FEW) /hpf Urine Mucus (FEW) /hpf Ur Random Creatinine (30.0-125.0) mg/dL Ur Random Microalbumin Microalb/Creat Ratio Burt Results Last 24 Hours: Microbiology 07/17/18 22:30 Aerobic Blood Culture - Preliminary Blood - Venous NO GROWTH AFTER 1 DAY Anaerobic Blood Culture - Preliminary NO GROWTH AFTER 1 DAY 07/17/18 22:35 Aerobic Blood Culture - Preliminary Blood - Venous - Lab Draw NO GROWTH AFTER 1 DAY Anaerobic Blood Culture - Preliminary NO GROWTH AFTER 1 DAY Med Orders - Current: Current Medications Acetaminophen (Tylenol) 650 mg PO Q4H PRN PRN Reason: Pain (Mild 1-3)/fever Last Admin: 07/18/18 22:17 Dose: 650 mg Hydrocodone Bitart/Acetaminophen ([place] 325-5 Mg) 1 tab PO Q4H PRN PRN Reason: Pain (moderate 4-6) Last Admin: 07/19/18 11:06 Dose: 1 tab Albuterol/Ipratropium (Duoneb 3.0-0.5 Mg/3 Ml) 3 ml NEB Q4H PRN PRN Reason: Shortness Of Breath/wheezing Amlodipine Besylate (Norvasc) 10 mg PO DAILY [facility] Last Admin: 07/18/18 09:18 Dose: Not Given Bisacodyl (Dulcolax) 5 mg PO DAILY PRN PRN Reason: Constipation Carvedilol (Coreg) 25 mg PO DAILY [facility] Last Admin: 07/18/18 09:18 Dose: Not Given Dextrose/Water (Dextrose 50% In Water) 50 ml IVPUSH ASDIRECTED PRN PRN Reason: Hypoglycemia Docusate Sodium (Colace) 100 mg PO BID PRN PRN Reason: Constipation Duloxetine HCl (Cymbalta) 30 mg PO BID [facility] Last Admin: 07/19/18 08:19 Dose: 30 mg Enoxaparin Sodium (Lovenox) 30 mg SUBCUT DAILY [facility] Last Admin: 07/19/18 10:34 Dose: 30 mg Furosemide (Lasix) 40 mg PO DAILY [facility] Last Admin: 07/18/18 09:18 Dose: Not Given Hydralazine HCl (Apresoline) 20 mg IVPUSH Q4H PRN PRN Reason: Hypertension Hydrocortisone Sodium Succinate (Solu-Cortef) 100 mg IVPUSH Q6H [facility] Last Admin: 07/19/18 10:34 Dose: 100 mg Hydromorphone HCl (Dilaudid) 1 mg IVPUSH Q4H PRN PRN Reason: Pain (severe 7-10) Last Admin: 07/19/18 13:36 Dose: 1 mg Hydroxyzine HCl (Atarax) 25 mg PO BID [facility] Last Admin: 07/19/18 08:19 Dose: 25 mg Piperacillin Sod/Tazobactam (Sod 4.5 gm/ Sodium Chloride) 100 mls @ 25 mls/hr IV Q8H [facility] Last Admin: 07/19/18 10:34 Dose: 25 mls/hr Sodium Chloride (Normal Saline) 1,000 mls @ 250 mls/hr IV ASDIRECTED [facility] Last Admin: 07/19/18 14:23 Dose: 250 mls/hr Vancomycin HCl 1 gm/Vancomycin HCl 250 mg/ Sodium Chloride 250 mls @ 166.667 mls/hr IV Q24H [facility] Last Admin: 07/18/18 22:20 Dose: 166.667 mls/hr Norepinephrine Bitartrate 4 mg (/ Dextrose/Water) 250 mls @ 7.5 mls/hr IV TITRATE [facility]; Protocol Last Titration: 07/19/18 06:05 Dose: 0 mcg/min, 0 mls/hr Levofloxacin/Dextrose 500 mg/ (Premix) 100 mls @ 100 mls/hr IV Q24H [facility] Last Admin: 07/18/18 23:47 Dose: 100 mls/hr Insulin Glargine (Lantus) 15 unit SUBCUT DAILY [facility] Last Admin: 07/19/18 08:19 Dose: 15 units Insulin Human Lispro (Humalog) 0 unit SUBCUT QIDACANDBED [facility]; Protocol Last Admin: 07/19/18 11:05 Dose: 4 units Lisinopril (Prinivil) 20 mg PO BID [facility] Last Admin: 07/18/18 09:18 Dose: Not Given Lorazepam (Ativan) 1 mg IV Q6H PRN PRN Reason: Anxiety Magnesium Sulfate (Pharmacy To Dose - Magnesium Replacement) 0 dose .XX ASDIRECTED PRN PRN Reason: RX TO WATCH MAG Metoprolol Tartrate (Lopressor) 5 mg IVPUSH Q4H PRN PRN Reason: Tachycardia Ondansetron HCl (Zofran) 4 mg IV Q6H PRN PRN Reason: Nausea/Vomiting Last Admin: 07/18/18 13:00 Dose: 4 mg Pantoprazole Sodium (Protonix) 40 mg PO ACBREAKFAST [facility] Last Admin: 07/19/18 05:55 Dose: 40 mg Polyethylene Glycol (Miralax) 17 gm PO DAILY PRN PRN Reason: Constipation Potassium Chloride (Pharmacy To Dose - Potassium Replacement) 0 dose .XX ASDIRECTED PRN PRN Reason: RX TO WATCH K Rosuvastatin Calcium (Crestor) 20 mg PO BEDTIME [facility] Last Admin: 07/18/18 20:43 Dose: 20 mg Saccharomyces Boulardii (Florastor) 250 mg PO BID [facility] Last Admin: 07/19/18 08:19 Dose: 250 mg Senna/Docusate Sodium (Senna Plus) 1 tab PO BID PRN PRN Reason: Constipation Temazepam (Restoril) 15 mg PO BEDTIME PRN PRN Reason: Insomnia Last Admin: 07/18/18 01:36 Dose: 15 mg Vancomycin HCl (Pharmacy To Dose - Vancomycin) 0 dose .XX ASDIRECTED PRN PRN Reason: RX TO DOSE VANCO Discontinued Medications Hydromorphone HCl (Dilaudid) 0.5 mg IVPUSH Q2H PRN PRN Reason: Pain (severe 7-10) Hydromorphone HCl (Dilaudid) 1 mg IVPUSH Q6HR PRN PRN Reason: Pain Last Admin: 07/18/18 01:20 Dose: 1 mg Hydromorphone HCl (Dilaudid) 2 mg IVPUSH Q4H PRN PRN Reason: Pain Last Admin: 07/18/18 14:15 Dose: 1 mg Metronidazole 500 mg/ Premix 100 mls @ 100 mls/hr IV Q8H [facility] Last Admin: 07/18/18 00:02 Dose: Not Given Vancomycin HCl 1.5 gm/ Sodium (Chloride) 250 mls @ 250 mls/hr IV Q12H [facility] Last Admin: 07/18/18 00:03 Dose: Not Given Vancomycin HCl 1.25 gm/ Sodium (Chloride) 250 mls @ 250 mls/hr IV Q24H [facility] Last Admin: 07/17/18 23:55 Dose: 250 mls/hr Levofloxacin/Dextrose 750 mg/ (Premix) 150 mls @ 100 mls/hr IV Q48H [facility] Last Admin: 07/18/18 00:03 Dose: Not Given Sodium Chloride (Normal Saline) 1,000 mls @ 125 mls/hr IV ASDIRECTED [facility] Last Admin: 07/18/18 06:37 Dose: 125 mls/hr Levofloxacin/Dextrose 750 mg/ (Premix) 150 mls @ 100 mls/hr IV Q48H GARETH Sodium Chloride (Normal Saline) 500 mls @ 999 mls/hr IV .BOLUS ONE Stop: 07/18/18 00:00 Last Admin: 07/17/18 23:53 Dose: 999 mls/hr Sodium Chloride (Normal Saline) 1,000 mls @ 125 mls/hr IV ASDIRECTED [facility] Potassium Chloride 10 meq/ (Premix) 100 mls @ 100 mls/hr IV Q1H GARETH Stop: 07/18/18 05:59 Piperacillin Sod/Tazobactam (Sod 4.5 gm/ Sodium Chloride) 100 mls @ 200 mls/hr IV ONETIME ONE Stop: 07/18/18 03:29 Last Admin: 07/18/18 02:26 Dose: 200 mls/hr Magnesium Sulfate 4 gm/ Premix 50 mls @ 12.5 mls/hr IV ONETIME ONE Stop: 07/18/18 13:59 Last Admin: 07/18/18 09:59 Dose: 12.5 mls/hr Sodium Chloride (Normal Saline) 1,000 mls @ 999 mls/hr IV .BOLUS ONE Stop: 07/18/18 10:53 Last Admin: 07/18/18 09:59 Dose: 999 mls/hr Sodium Chloride (Normal Saline) 1,000 mls @ 999 mls/hr IV ONETIME ONE Stop: 07/18/18 23:15 Last Infusion: 07/18/18 23:50 Dose: 250 mls/hr Midodrine (Midodrine) 5 mg PO TIDAC GARETH Stop: 07/19/18 07:01 Last Admin: 07/19/18 08:19 Dose: 5 mg Midodrine (Midodrine) 5 mg PO NOW STA Stop: 07/18/18 09:53 Last Admin: 07/18/18 10:25 Dose: 5 mg Potassium Chloride (Klor-Con M20) 40 meq PO Q4H GARETH Stop: 07/18/18 05:31 Last Admin: 07/18/18 05:53 Dose: 40 meq Potassium Chloride (Klor-Con M20) 40 meq PO ONETIME ONE Stop: 07/18/18 10:01 Last Admin: 07/18/18 09:58 Dose: 40 meq Temazepam (Restoril) 7.5 mg PO BEDTIME PRN PRN Reason: Sleep Vancomycin HCl (Vancomycin) 1,136.25 mg 15 mg/kg (1136.25 mg) IV Q12H [facility] Last Admin: 07/18/18 01:38 Dose: Not Given - Exam General: Alert, Oriented, Cooperative, No Acute Distress HEENT: Pupils Equal, Pupils Reactive, EOMI Neck: Supple Lungs: Clear to Auscultation, Normal Respiratory Effort Cardiovascular: Bradycardia GI/Abdominal Exam: Normal Bowel Sounds, Soft, Non-Tender, No Organomegaly, No Distention, No Abnormal Bruit (Female) Exam: Other (indwelling yo catheter) Back Exam: Normal Inspection, Decreased Range of Motion Extremities: Normal Range of Motion, Non-Tender, Other (left foot: slightly more edematous, erythematous and tender to touch) Peripheral Pulses: 2+: Posterior Tibial (R), Dorsalis Pedis (R) Skin: Warm, Dry, Intact Neurological: No New Focal Deficit (limited by left foot ). No: Normal Gait Psy/Mental Status: Alert, Normal Affect, Normal Mood - Problem List Review Problem List Initiated/Reviewed/Updated: Yes - My Orders Last 24 Hours: My Active Orders 07/18/18 16:00 Norepinephrine [Levophed] 4 mg Dextrose 5% in Water 246 ml IV TITRATE 07/18/18 16:22 Patient Status [ADT] Routine 07/18/18 17:20 CULTURE ANAEROBIC + SMEAR [RM] Routine 07/18/18 17:28 MICROALBUMIN,URINE RANDOM [URCHEM] Routine 07/18/18 18:05 Urinary Catheter Assessment [RC] Q4HR 07/18/18 18:15 Insert Yo Catheter [Insert Urinary Catheter] [OM.PC] Q24H 07/18/18 21:00 Rosuvastatin [Crestor] 20 mg PO BEDTIME 07/18/18 22:00 HYDROmorphone [Dilaudid] 1 mg IVPUSH Q4H PRN 07/18/18 23:00 Hydrocortisone Sod Succinate [Solu-CORTEF] 100 mg IVPUSH Q6H Levofloxacin/Dextrose 5%-Water [Levaquin in D5W 500 MG/100 ML] 500 mg Premix Bag 1 bag IV Q24H 07/18/18 23:25 CORTISOL [REF] Stat PROCALCITONIN [REF] Stat 07/19/18 22:30 VANCOMYCIN TROUGH [CHEM] Timed 07/19/18 Lunch Consistent Carbohydrate Diet [DIET] 07/20/18 05:11 BASIC METABOLIC PANEL,BMP [CHEM] AM CBC WITH AUTO DIFF [HEME] AM CRP [C-REACTIVE PROTEIN] [CHEM] AM MAGNESIUM [CHEM] AM 07/21/18 05:11 BASIC METABOLIC PANEL,BMP [CHEM] AM CBC WITH AUTO DIFF [HEME] AM CRP [C-REACTIVE PROTEIN] [CHEM] AM MAGNESIUM [CHEM] AM 07/22/18 05:11 BASIC METABOLIC PANEL,BMP [CHEM] AM CBC WITH AUTO DIFF [HEME] AM MAGNESIUM [CHEM] AM - Plan Plan:: Assessment/Plan: Acute: Sepsis with Hypotension (Severe Sepsis) - 2/2 Left Foot Cellulitis with Osteomyelitis - Diagnosis confirmed by both CT scan and MRI - WBC 43.08-->40.26-->45.78; BP 92/69 and 90/54 mmHg and source of infection - Requiring pressor drip unresponsive to fluid challenge - LA 0.8; CRP 20.2--> 21.9-->57.8 - Procalcitonin-->5.22 and Cortisol level-->12.7 - Continue Solucortef 100 mg IVP Q6H - Continue aggressive IV hydration - Is/Os to monitor volume status Left Foot Cellulitis with Osteomyelitis - Risk Factor: Poor Controlled DM2 - A1C 6.8; BS on admission 73 - On LA and SA insulin regimen - Pain control - Dr. Linn following Anemia, Stable - Anemia of acute illness - Hgb is 6.5 S/p 2 units PRBC Transfusions last night - Heme-occult test and Iron Panel in AM - Defer further work up outpatient - Hgb now is 8.6--> remains at 8.6 Electrolytes Abnormality, Improved - K 3-->5.2 (likely hemolysis) and Mg 1.4-->2.3 - 2/2 inadequate intake - Will replete and monitor Hypoalbuminemia - Albumin 1.0 - Dietary consult for malnutrition DM2 - Permissive with Hyperglycemia - A1C 6.8 - Microalbumin 9TNP per lab) - Dietary and Diabetic Education - Accu-check QID with ISS Chronic: Impaired Vision HTN HLD Asthma Liver Disease CKD 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
[2018-07-19] MEDS: oxyCODONE ER 10 MG TAB.ER PO SCH (20:09)
[2018-07-19] MEDS: Rosuvastatin 10 MG Tab PO SCH (20:11)
[2018-07-19] MEDS: Levofloxacin/Dextrose 5%-Water 500 MG in Premix Bag 1 BAG IV SCH (22:17)
[2018-07-19] MEDS ORDERED: Sodium Chloride 0.9% 1,000 ML IV ONE (22:24)
[2018-07-19] MEDS ORDERED: Norepinephrine 4 MG/4 ML SDV ONE (22:27)
[2018-07-19] MEDS: Norepinephrine 4 MG in Dextrose 5% in Water 246 ML IV SCH ×2 (22:46)
[2018-07-19] MEDS ORDERED: diphenhydrAMINE 50 MG/ML SDV IVPUSH ONE (22:49)
[2018-07-19] MEDS ORDERED: diphenhydrAMINE 50 MG/ML SDV ONE (22:51)
[2018-07-19] MEDS: HYDROmorphone 1 MG/ML Syringe IVPUSH PRN (23:03)
[2018-07-19] MEDS: Temazepam 15 MG Cap PO PRN (23:09)
[2018-07-19] MEDS: Vancomycin 1 GM, Vancomycin 250 MG in Sodium Chloride 0.9% 250 ML IV SCH (23:54)
[2018-07-20] MEDS: Acetaminophen/HYDROcodone 325-5 MG Tab PO PRN (02:06)
[2018-07-20] MEDS: Piperacillin/Tazobactam 4.5 GM in Sodium Chloride 0.9% 100 ML IV SCH ×2 (02:09→14:53)
[2018-07-20] MEDS: Sodium Chloride 0.9% 1,000 ML IV SCH ×5 (03:47→21:22)
[2018-07-20] MEDS: Acetaminophen 325 MG Tab PO PRN (03:56)
[2018-07-20] MEDS: Hydrocortisone Sodium Succinate 100 MG/2 ML SDV IVPUSH SCH ×4 (04:10→21:46)
[2018-07-20] MEDS: Pantoprazole 40 MG Tab.CR PO SCH (06:26)
--- NOTE | 2018-07-20 07:22 | PCM.PN ---
- General Info Date of Service: 07/20/18 Admission Dx/Problem (Free Text): Admission Diagnosis/Problem Admission Diagnosis/Problem Osteomyelitis of foot Subjective Update: Follow Up Functional Status: Reports: Tolerating Diet, Urinating. Denies: Pain Controlled , Ambulating, New Symptoms Pain Score: 7 - Review of Systems General: Denies: Fever, Chills HEENT: Reports: No Symptoms Pulmonary: Denies: Shortness of Breath Cardiovascular: Denies: Chest Pain Gastrointestinal: Denies: Abdominal Pain, Nausea, Vomiting Genitourinary: Reports: No Symptoms Musculoskeletal: Reports: Foot Pain Skin: Denies: Cyanosis, Pallor, Diaphoresis, Bruising Neurological: Reports: Weakness, Gait Disturbance. Denies: Confusion Psychiatric: Denies: Depression, Anxiety, Agitation, Hallucinations Systems Review Comment:: Patient wants more pain medications but she understands we can only give her so much because her blood pressure does not tolerate it. Her urine is starting to slow down. She remains afebrile but her WBC went up today at 61.93. Her CRP is down to 22.8. Her Sodium level is slightly up as well. - Patient Data Vitals - Most Recent: Last Vital Signs Temp 35.8 C 07/20/18 04:00 Pulse 55 L 07/19/18 23:50 Resp 20 07/20/18 07:00 BP 100/70 07/20/18 07:00 Pulse Ox 96 07/20/18 07:00 Weight - Most Recent: 105.778 kg I&O - Last 24 Hours: Intake & Output 07/19/18 07/20/18 07/20/18 22:59 06:59 14:59 Intake Total 4518 5112 Output Total 140 47 Balance 4378 5065 Lab Results Last 24 Hours: Laboratory Results - last 24 hr 07/18/18 07/18/18 07/19/18 Range/Units 23:25 23:25 11:02 WBC (3.98-10.04) K/mm3 RBC (3.98-5.22) M/mm3 Hgb (11.2-15.7) gm/L Hct (34.1-44.9) % MCV (79.4-94.8) fl MCH (25.6-32.2) pg MCHC (32.2-35.5) g/dl RDW Std Deviation (36.4-46.3) fL Plt Count (182-369) K/mm3 MPV (9.4-12.3) fl Neut % (Auto) (34.0-71.1) % Lymph % (Auto) (19.3-51.7) % [place] % (Auto) (4.7-12.5) % Eos % (Auto) (0.7-5.8) Baso % (Auto) (0.1-1.2) % Neut # (Auto) (1.56-6.13) K/mm3 Lymph # (Auto) (1.18-3.74) K/mm3 [place] # (Auto) (0.24-0.36) K/mm3 Eos # (Auto) (0.04-0.36) K/mm3 Baso # (Auto) (0.01-0.08) K/mm3 Manual Slide Review Sodium (136-145) mEq/L Potassium (3.5-5.1) mEq/L Chloride (98-107) mEq/L Carbon Dioxide (21-32) mEq/L Anion Gap (5-15) BUN (7-18) mg/dL Creatinine (0.55-1.02) mg/dL Est Cr Clr Drug Dosing mL/min Estimated GFR (MDRD) (>60) mL/min BUN/Creatinine Ratio (14-18) Glucose (74-106) mg/dL POC Glucose 208 H (70-105) mg/dL Calcium (8.5-10.1) mg/dL Magnesium (1.8-2.4) mg/dl Procalcitonin 5.22 H (<0.10) ng/mL Cortisol 12.7 ug/dL Vancomycin Trough (10.0-20.0) 07/19/18 07/19/18 07/19/18 Range/Units 16:50 22:21 22:30 WBC (3.98-10.04) K/mm3 RBC (3.98-5.22) M/mm3 Hgb (11.2-15.7) gm/L Hct (34.1-44.9) % MCV (79.4-94.8) fl MCH (25.6-32.2) pg MCHC (32.2-35.5) g/dl RDW Std Deviation (36.4-46.3) fL Plt Count (182-369) K/mm3 MPV (9.4-12.3) fl Neut % (Auto) (34.0-71.1) % Lymph % (Auto) (19.3-51.7) % [place] % (Auto) (4.7-12.5) % Eos % (Auto) (0.7-5.8) Baso % (Auto) (0.1-1.2) % Neut # (Auto) (1.56-6.13) K/mm3 Lymph # (Auto) (1.18-3.74) K/mm3 [place] # (Auto) (0.24-0.36) K/mm3 Eos # (Auto) (0.04-0.36) K/mm3 Baso # (Auto) (0.01-0.08) K/mm3 Manual Slide Review Sodium (136-145) mEq/L Potassium (3.5-5.1) mEq/L Chloride (98-107) mEq/L Carbon Dioxide (21-32) mEq/L Anion Gap (5-15) BUN (7-18) mg/dL Creatinine (0.55-1.02) mg/dL Est Cr Clr Drug Dosing mL/min Estimated GFR (MDRD) (>60) mL/min BUN/Creatinine Ratio (14-18) Glucose (74-106) mg/dL POC Glucose 179 H 259 H (70-105) mg/dL Calcium (8.5-10.1) mg/dL Magnesium (1.8-2.4) mg/dl Procalcitonin (<0.10) ng/mL Cortisol ug/dL Vancomycin Trough 25.6 H (10.0-20.0) 07/20/18 07/20/18 07/20/18 Range/Units 05:02 05:12 05:46 WBC 61.93 H (3.98-10.04) K/mm3 RBC 3.54 L (3.98-5.22) M/mm3 Hgb 9.8 L (11.2-15.7) gm/L Hct 29.7 L (34.1-44.9) % MCV 83.9 (79.4-94.8) fl MCH 27.7 (25.6-32.2) pg MCHC 33.0 (32.2-35.5) g/dl RDW Std Deviation 41.9 (36.4-46.3) fL Plt Count 364 (182-369) K/mm3 MPV 9.6 (9.4-12.3) fl Neut % (Auto) 94.4 H (34.0-71.1) % Lymph % (Auto) 2.1 L (19.3-51.7) % [place] % (Auto) 2.0 L (4.7-12.5) % Eos % (Auto) 0 L (0.7-5.8) Baso % (Auto) 0.1 (0.1-1.2) % Neut # (Auto) 58.53 H (1.56-6.13) K/mm3 Lymph # (Auto) 1.28 (1.18-3.74) K/mm3 [place] # (Auto) 1.22 H (0.24-0.36) K/mm3 Eos # (Auto) 0.00 L (0.04-0.36) K/mm3 Baso # (Auto) 0.04 (0.01-0.08) K/mm3 Manual Slide Review Abnormal smear Sodium 132 L (136-145) mEq/L Potassium 5.3 H (3.5-5.1) mEq/L Chloride 106 (98-107) mEq/L Carbon Dioxide 11 L (21-32) mEq/L Anion Gap 20.3 H (5-15) BUN 55 H (7-18) mg/dL Creatinine 3.9 H (0.55-1.02) mg/dL Est Cr Clr Drug Dosing 18.78 mL/min Estimated GFR (MDRD) 13 (>60) mL/min BUN/Creatinine Ratio 14.1 (14-18) Glucose 189 H (74-106) mg/dL POC Glucose 189 H (70-105) mg/dL Calcium 7.3 L (8.5-10.1) mg/dL Magnesium 2.2 (1.8-2.4) mg/dl Procalcitonin (<0.10) ng/mL Cortisol ug/dL Vancomycin Trough (10.0-20.0) Burt Results Last 24 Hours: Microbiology 07/17/18 22:30 Aerobic Blood Culture - Preliminary Blood - Venous NO GROWTH AFTER 2 DAYS Anaerobic Blood Culture - Preliminary NO GROWTH AFTER 2 DAYS 07/17/18 22:35 Aerobic Blood Culture - Preliminary Blood - Venous - Lab Draw NO GROWTH AFTER 2 DAYS Anaerobic Blood Culture - Preliminary NO GROWTH AFTER 2 DAYS 07/18/18 17:20 Gram Stain - Final Toe, Left - Left Fourth Med Orders - Current: Current Medications Acetaminophen (Tylenol) 650 mg PO Q4H PRN PRN Reason: Pain (Mild 1-3)/fever Last Admin: 07/20/18 03:56 Dose: 650 mg Hydrocodone Bitart/Acetaminophen ([place] 325-5 Mg) 1 tab PO Q4H PRN PRN Reason: Pain (moderate 4-6) Last Admin: 07/20/18 02:06 Dose: 1 tab Albuterol/Ipratropium (Duoneb 3.0-0.5 Mg/3 Ml) 3 ml NEB Q4H PRN PRN Reason: Shortness Of Breath/wheezing Amlodipine Besylate (Norvasc) 10 mg PO DAILY [facility] Last Admin: 07/18/18 09:18 Dose: Not Given Bisacodyl (Dulcolax) 5 mg PO DAILY PRN PRN Reason: Constipation Carvedilol (Coreg) 25 mg PO DAILY [facility] Last Admin: 07/18/18 09:18 Dose: Not Given Dextrose/Water (Dextrose 50% In Water) 50 ml IVPUSH ASDIRECTED PRN PRN Reason: Hypoglycemia Docusate Sodium (Colace) 100 mg PO BID PRN PRN Reason: Constipation Duloxetine HCl (Cymbalta) 30 mg PO BID [facility] Last Admin: 07/19/18 20:10 Dose: 30 mg Enoxaparin Sodium (Lovenox) 30 mg SUBCUT DAILY [facility] Last Admin: 07/19/18 10:34 Dose: 30 mg Furosemide (Lasix) 40 mg PO DAILY [facility] Last Admin: 07/18/18 09:18 Dose: Not Given Hydralazine HCl (Apresoline) 20 mg IVPUSH Q4H PRN PRN Reason: Hypertension Hydrocortisone Sodium Succinate (Solu-Cortef) 100 mg IVPUSH Q6H [facility] Last Admin: 07/20/18 04:10 Dose: 100 mg Hydromorphone HCl (Dilaudid) 1 mg IVPUSH Q6H PRN PRN Reason: Pain (severe 7-10) Last Admin: 07/19/18 23:03 Dose: 1 mg Hydroxyzine HCl (Atarax) 25 mg PO BID [facility] Last Admin: 07/19/18 20:10 Dose: 25 mg Piperacillin Sod/Tazobactam (Sod 4.5 gm/ Sodium Chloride) 100 mls @ 25 mls/hr IV Q8H [facility] Last Admin: 07/20/18 02:09 Dose: 25 mls/hr Sodium Chloride (Normal Saline) 1,000 mls @ 250 mls/hr IV ASDIRECTED [facility] Last Admin: 07/20/18 03:47 Dose: 250 mls/hr Norepinephrine Bitartrate 4 mg (/ Dextrose/Water) 250 mls @ 7.5 mls/hr IV TITRATE [facility]; Protocol Last Admin: 07/19/18 22:46 Dose: 2 mcg/min, 7.5 mls/hr Levofloxacin/Dextrose 500 mg/ (Premix) 100 mls @ 100 mls/hr IV Q24H [facility] Last Admin: 07/19/18 22:17 Dose: 100 mls/hr Vancomycin HCl 0.75 gm/ Sodium (Chloride) 250 mls @ 250 mls/hr IV Q24H [facility] Insulin Glargine (Lantus) 15 unit SUBCUT DAILY [facility] Last Admin: 07/19/18 08:19 Dose: 15 units Insulin Human Lispro (Humalog) 0 unit SUBCUT QIDACANDBED [facility]; Protocol Last Admin: 07/19/18 22:29 Dose: 6 units Lisinopril (Prinivil) 20 mg PO BID [facility] Last Admin: 07/18/18 09:18 Dose: Not Given Lorazepam (Ativan) 1 mg IV Q6H PRN PRN Reason: Anxiety Last Admin: 07/20/18 03:58 Dose: 1 mg Magnesium Sulfate (Pharmacy To Dose - Magnesium Replacement) 0 dose .XX ASDIRECTED PRN PRN Reason: RX TO WATCH MAG Metoprolol Tartrate (Lopressor) 5 mg IVPUSH Q4H PRN PRN Reason: Tachycardia Midodrine (Midodrine) 5 mg PO TIDAC [facility] Last Admin: 07/19/18 20:08 Dose: 5 mg Ondansetron HCl (Zofran) 4 mg IV Q6H PRN PRN Reason: Nausea/Vomiting Last Admin: 07/18/18 13:00 Dose: 4 mg Oxycodone HCl (Oxycontin) 10 mg PO Q12HR [facility] Last Admin: 07/19/18 20:09 Dose: 10 mg Pantoprazole Sodium (Protonix) 40 mg PO ACBREAKFAST [facility] Last Admin: 07/20/18 06:26 Dose: 40 mg Polyethylene Glycol (Miralax) 17 gm PO DAILY PRN PRN Reason: Constipation Potassium Chloride (Pharmacy To Dose - Potassium Replacement) 0 dose .XX ASDIRECTED PRN PRN Reason: RX TO WATCH K Rosuvastatin Calcium (Crestor) 20 mg PO BEDTIME [facility] Last Admin: 07/19/18 20:11 Dose: 20 mg Saccharomyces Boulardii (Florastor) 250 mg PO BID [facility] Last Admin: 07/19/18 20:12 Dose: 250 mg Senna/Docusate Sodium (Senna Plus) 1 tab PO BID PRN PRN Reason: Constipation Temazepam (Restoril) 15 mg PO BEDTIME PRN PRN Reason: Insomnia Last Admin: 07/19/18 23:09 Dose: 15 mg Vancomycin HCl (Pharmacy To Dose - Vancomycin) 0 dose .XX ASDIRECTED PRN PRN Reason: RX TO DOSE VANCO Discontinued Medications Diphenhydramine HCl (Benadryl) 25 mg IVPUSH ONETIME ONE Stop: 07/19/18 22:50 Last Admin: 07/19/18 22:56 Dose: 25 mg Diphenhydramine HCl (Benadryl) Confirm Administered Dose 50 mg .ROUTE .STK-MED ONE Stop: 07/19/18 22:52 Last Admin: 07/19/18 22:57 Dose: Not Given Hydromorphone HCl (Dilaudid) 0.5 mg IVPUSH Q2H PRN PRN Reason: Pain (severe 7-10) Hydromorphone HCl (Dilaudid) 1 mg IVPUSH Q6HR PRN PRN Reason: Pain Last Admin: 07/18/18 01:20 Dose: 1 mg Hydromorphone HCl (Dilaudid) 2 mg IVPUSH Q4H PRN PRN Reason: Pain Last Admin: 07/18/18 14:15 Dose: 1 mg Hydromorphone HCl (Dilaudid) 1 mg IVPUSH Q4H PRN PRN Reason: Pain (severe 7-10) Last Admin: 07/19/18 13:36 Dose: 1 mg Metronidazole 500 mg/ Premix 100 mls @ 100 mls/hr IV Q8H [facility] Last Admin: 07/18/18 00:02 Dose: Not Given Vancomycin HCl 1.5 gm/ Sodium (Chloride) 250 mls @ 250 mls/hr IV Q12H [facility] Last Admin: 07/18/18 00:03 Dose: Not Given Vancomycin HCl 1.25 gm/ Sodium (Chloride) 250 mls @ 250 mls/hr IV Q24H [facility] Last Admin: 07/17/18 23:55 Dose: 250 mls/hr Levofloxacin/Dextrose 750 mg/ (Premix) 150 mls @ 100 mls/hr IV Q48H [facility] Last Admin: 07/18/18 00:03 Dose: Not Given Sodium Chloride (Normal Saline) 1,000 mls @ 125 mls/hr IV ASDIRECTED [facility] Last Admin: 07/18/18 06:37 Dose: 125 mls/hr Levofloxacin/Dextrose 750 mg/ (Premix) 150 mls @ 100 mls/hr IV Q48H [facility] Sodium Chloride (Normal Saline) 500 mls @ 999 mls/hr IV .BOLUS ONE Stop: 07/18/18 00:00 Last Admin: 07/17/18 23:53 Dose: 999 mls/hr Sodium Chloride (Normal Saline) 1,000 mls @ 125 mls/hr IV ASDIRECTED [facility] Potassium Chloride 10 meq/ (Premix) 100 mls @ 100 mls/hr IV Q1H [facility] Stop: 07/18/18 05:59 Piperacillin Sod/Tazobactam (Sod 4.5 gm/ Sodium Chloride) 100 mls @ 200 mls/hr IV ONETIME ONE Stop: 07/18/18 03:29 Last Admin: 07/18/18 02:26 Dose: 200 mls/hr Magnesium Sulfate 4 gm/ Premix 50 mls @ 12.5 mls/hr IV ONETIME ONE Stop: 07/18/18 13:59 Last Admin: 07/18/18 09:59 Dose: 12.5 mls/hr Sodium Chloride (Normal Saline) 1,000 mls @ 999 mls/hr IV .BOLUS ONE Stop: 07/18/18 10:53 Last Admin: 07/18/18 09:59 Dose: 999 mls/hr Vancomycin HCl 1 gm/Vancomycin HCl 250 mg/ Sodium Chloride 250 mls @ 166.667 mls/hr IV Q24H [facility] Last Admin: 07/19/18 23:54 Dose: Not Given Sodium Chloride (Normal Saline) 1,000 mls @ 999 mls/hr IV ONETIME ONE Stop: 07/18/18 23:15 Last Infusion: 07/18/18 23:50 Dose: 250 mls/hr Sodium Chloride (Normal Saline) 1,000 mls @ 999 mls/hr IV ONETIME ONE Stop: 07/19/18 23:24 Last Admin: 07/20/18 01:35 Dose: Not Given Midodrine (Midodrine) 5 mg PO TIDAC [facility] Stop: 07/19/18 07:01 Last Admin: 07/19/18 08:19 Dose: 5 mg Midodrine (Midodrine) 5 mg PO NOW STA Stop: 07/18/18 09:53 Last Admin: 07/18/18 10:25 Dose: 5 mg Potassium Chloride (Klor-Con M20) 40 meq PO Q4H [facility] Stop: 07/18/18 05:31 Last Admin: 07/18/18 05:53 Dose: 40 meq Potassium Chloride (Klor-Con M20) 40 meq PO ONETIME ONE Stop: 07/18/18 10:01 Last Admin: 07/18/18 09:58 Dose: 40 meq Temazepam (Restoril) 7.5 mg PO BEDTIME PRN PRN Reason: Sleep Vancomycin HCl (Vancomycin) 1,136.25 mg 15 mg/kg (1136.25 mg) IV Q12H [facility] Last Admin: 07/18/18 01:38 Dose: Not Given - Exam Quality Assessment: No: Supplemental Oxygen General: Alert, Oriented, Cooperative, Mild Distress HEENT: Pupils Equal, Pupils Reactive, EOMI, Mucous Membr. Moist/[place], Other ( fair dentition) Neck: Supple Lungs: Normal Respiratory Effort, Decreased Breath Sounds Cardiovascular: Regular Rate, Regular Rhythm GI/Abdominal Exam: Normal Bowel Sounds, Soft, Non-Tender, No Organomegaly, No Distention, No Abnormal Bruit, No Mass (Female) Exam: Other (indwelling yo catheter) Back Exam: Normal Inspection, Decreased Range of Motion Extremities: Normal Range of Motion (right lower extremity), Pedal Edema (left foot), Limited Range of Motion. No: Normal Inspection Peripheral Pulses: 1+: Posterior Tibial (R), Dorsalis Pedis (R) Skin: Warm, Dry, Intact, Other (left foot: about the same as yesterday) Neurological: No New Focal Deficit (limited due to foot infection and pain/ discomfort with movement). No: Normal Gait Psy/Mental Status: Alert, Normal Affect, Normal Mood - Problem List Review Problem List Initiated/Reviewed/Updated: Yes - My Orders Last 24 Hours: My Active Orders 07/19/18 19:51 HYDROmorphone [Dilaudid] 1 mg IVPUSH Q6H PRN 07/19/18 20:15 Midodrine 5 mg PO TIDAC 07/19/18 21:00 oxyCODONE ER [OxyCONTIN] 10 mg PO Q12HR 07/19/18 Lunch Consistent Carbohydrate Diet [DIET] 07/20/18 05:12 BASIC METABOLIC PANEL,BMP [CHEM] AM CRP [C-REACTIVE PROTEIN] [CHEM] AM MAGNESIUM [CHEM] AM 07/20/18 08:00 Vancomycin 0.75 gm Sodium Chloride 0.9% [Normal Saline] 250 ml IV Q24H 07/21/18 05:11 BASIC METABOLIC PANEL,BMP [CHEM] AM CBC WITH AUTO DIFF [HEME] AM CRP [C-REACTIVE PROTEIN] [CHEM] AM MAGNESIUM [CHEM] AM 07/22/18 05:11 BASIC METABOLIC PANEL,BMP [CHEM] AM CBC WITH AUTO DIFF [HEME] AM MAGNESIUM [CHEM] AM - Plan Plan:: Assessment/Plan: Acute: Sepsis with Hypotension (Severe Sepsis) - 2/2 Left Foot Cellulitis with Osteomyelitis - Diagnosis confirmed by both CT scan and MRI - WBC 43.08-->40.26-->45.78-->61.93; BP 92/69 and 90/54 mmHg and source of infection - Requiring pressor drip unresponsive to fluid challenge - LA 0.8; CRP 20.2--> 21.9-->57.8-->22.8 - Procalcitonin-->5.22 and Cortisol level-->12.7 - Continue Solucortef 100 mg IVP Q6H - Continue aggressive IV hydration - Is/Os to monitor volume status; output slowing down Acute vs CKD/Acute on Chronic (given her hx/o poorly controlled diabetes) - Baseline level for comparison GFR 25 Apr 2018 - Sepsis obviously is playing a factor here plus multiple medications - She is aggressively hydrating - Renal U/S did not show stones or obstructive uropathy - Consider transfer if renal function declines further Left Foot Cellulitis with Osteomyelitis - Risk Factor: Poor Controlled DM2 - A1C 6.8; BS on admission 73 - On LA and SA insulin regimen - Pain control - Dr. Linn following; saw her on Sunday and awaiting further input today Anemia, Stable - Anemia of acute illness - Hgb is 6.5 S/p 2 units PRBC Transfusions last night - Heme-occult test and Iron Panel in AM - Defer further work up outpatient - Hgb now is 8.6--> remains at 8.6; 9.8 today Electrolytes Abnormality, Improved - K 3-->5.2-->5.3 (likely hemolysis) and Mg 1.4-->2.3-->2.2 (normal) - 2/2 inadequate intake - Will replete and monitor Hypoalbuminemia - Albumin 1.0 (severe) - Dietary consult for malnutrition DM2 - Permissive with Hyperglycemia - A1C 6.8 - Microalbumin (TNP per lab) - Dietary and Diabetic Education - Accu-check QID with ISS Chronic: Impaired Vision HTN HLD Asthma Liver Disease CKD 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 Linn DVT/GI PPx SW/CM for d/c planning Additional orders as above
[2018-07-20] MEDS ORDERED: 50% Dextrose in Water 50 ML SDV IV PRN (08:50)
[2018-07-20] MEDS: Insulin Glarg,Human.Rec.Analog 100 UNIT/ML ML SUBCUT SCH (08:56)
[2018-07-20] MEDS: oxyCODONE ER 10 MG TAB.ER PO SCH ×2 (08:58→20:14)
[2018-07-20] MEDS: DULoxetine 30 MG Cap PO SCH ×2 (09:01→20:14)
[2018-07-20] MEDS: Saccharomyces Boulardii (Probiotic) 250 MG Cap PO SCH ×2 (09:01→20:14)
[2018-07-20] MEDS: Midodrine 5 MG Tab PO SCH ×3 (09:01→17:29)
[2018-07-20] MEDS: Insulin Lispro 100 Units/ML 3 ML Vial SUBCUT SCH ×4 (09:04→21:48)
[2018-07-20] MEDS: hydrOXYzine HCl 25 MG Tab PO SCH ×2 (09:04→20:14)
[2018-07-20] MEDS: HYDROmorphone 1 MG/ML Syringe IVPUSH PRN ×2 (10:56→21:23)
--- NOTE | 2018-07-20 14:56 | US ---
Renal ultrasound: Multiple real-time images of the kidneys were obtained. Technologist's note: Limited exam, patient could not hold breath also due to body habitus Comparison: No prior bladder imaging or renal imaging. Tubular structure is seen within the bladder, please correlate if Blancas catheter is in place. Kidneys show no hydronephrosis or discrete mass. Resistivity indices are felt to be within normal limits. No ureteral jets are seen within the bladder. Measurements: Right kidney length: 11.5 cm Left kidney length: 12.1 cm Impression: 1. Tubular structure within the bladder. Please correlate if patient has catheter in place. 2. No abnormality is otherwise seen on renal ultrasound exam. Diagnostic code #2
[2018-07-20] MEDS ORDERED: Midodrine 5 MG Tab PO SCH (19:49)
--- NOTE | 2018-07-20 19:49 | PCM.CONS ---
H&P History of Present Illness - General Date of Service: 07/18/18 Admit Problem/Dx: Admission Diagnosis/Problem Admission Diagnosis/Problem Osteomyelitis of foot Source of Information: Patient, Provider, RN - History of Present Illness Initial Comments - Free Text/Narative: This is a 38 year old poorly controlled diabetic with left foot osteomyelitis. She had a draining area around her fourth toe for a month and was placed on antibiotics and was suppose to follow up with a doctor but has not. [facility] is [facility] in [facility] and a CT scan was ordered and she was found to have significant osteomyelitis of the fourth metatarsal as well as fifth. She was sent to the ED and medicine has admitted the patient for IV antibiotics. Left Feet Pain Score (Numeric/FACES): 7 - Related Data Allergies/Adverse Reactions: Allergies Allergy/AdvReac Type Severity Reaction Status Date / Time codeine Allergy Difficulty Verified 07/18/18 02:55 Breathing fluoxetine [From Prozac] Allergy Difficulty Verified 07/18/18 02:55 Breathing sertraline [From Zoloft] Allergy Difficulty Verified 07/18/18 02:55 Breathing shellfish derived Allergy Hives Verified 07/18/18 02:55 Home Medications: Home Meds Carvedilol [Coreg] 25 mg PO DAILY 06/16/18 [History] DULoxetine [Cymbalta] 30 mg PO BID 06/16/18 [History] Furosemide 40 mg PO DAILY 06/16/18 [History] Insulin Aspart [NovoLOG] 0 units SQ BID 06/16/18 [History] Insulin Detemir [Levemir] 15 units SQ DAILY 06/16/18 [History] Lisinopril 20 mg PO BID 06/16/18 [History] Pantoprazole [ProTONIX] 40 mg PO DAILY 06/16/18 [History] amLODIPine Besylate [Amlodipine Besylate] 10 mg PO DAILY 06/16/18 [History] atorvaSTATin [Lipitor] 80 mg PO BEDTIME 06/16/18 [History] hydrOXYzine HCl [hydrOXYzine] 25 mg PO BID 06/16/18 [History] Acetaminophen [Tylenol] 650 mg PO Q4HR PRN 07/18/18 [History] Ibuprofen [Ibu] 600 mg PO TID 07/18/18 [History] Non-Formulary Medication [NF Drug] 500 mg PO TID 07/18/18 [History] Past Medical History HEENT History: Reports: Impaired Vision Cardiovascular History: Reports: High Cholesterol, Hypertension Respiratory History: Reports: Asthma Gastrointestinal History: Reports: Other (See Below) Other Gastrointestinal History: liver disease Genitourinary History: Reports: Other (See Below) Other Genitourinary History: chronic kidney disease [employer] History: Reports: Musculoskeletal History: Reports: Other (See Below) Other Musculoskeletal History: broke L foot Neurological History: Reports: Headaches, Chronic, Neuropathy, Diabetic Psychiatric History: Reports: Addiction, Anxiety, Depression Endocrine/Metabolic History: Reports: Diabetes, Type II Hematologic History: Reports: Anemia Other Hematologic History: pt states back in 2000 dx with anemia Immunologic History: Reports: Other (See Below) Other Immunologic History: viral hep C Oncologic (Cancer) History: Reports: Other (See Below) Other Oncologic History: stomach Dermatologic History: Reports: Eczema - Infectious Disease History Infectious Disease History: Reports: Chicken Pox, Hepatitis C - Past Surgical History HEENT Surgical History: Reports: Tonsillectomy, Other (See Below) Other HEENT Surgeries/Procedures: wisdom teeth Cardiovascular Surgical History: Reports: None Female Surgical History: Reports: Section, Other (See Below) Other Female Surgeries/Procedures: hysterectomy Social & Family History - Family History Family Medical History: Noncontributory - Tobacco Use Smoking Status *Q: Former Smoker Used Tobacco, but Quit: Yes Month/Year Tobacco Last Used: mar 2018 - Caffeine Use Caffeine Use: Reports: Coffee, Tea - Recreational Drug Use Recreational Drug Use: No H&P Review of Systems - Review of Systems: Review Of Systems: ROS reveals no pertinent complaints other than HPI. Exam - Exam Exam: See Below - Vital Signs Vital Signs: Last Vital Signs Temp 36.1 C 07/20/18 16:00 Pulse 56 L 07/20/18 16:00 Resp 15 07/20/18 16:00 BP 92/60 07/20/18 16:00 Pulse Ox 96 07/20/18 16:00 Weight: 105.778 kg - Exam Physical Exam Comments:: LLE: no streaking noted, left foot is diffusely swollen, able to move ankle without difficulty, small area of drainage noted over the lateral aspect of the PIP joint of the fourth toe, no exposed bone, no fluctuance is noted, significant erythema is noted, good cap refill at less than 2 seconds, patient has decreased sensation diffusely to the foot - Patient Data Lab Results Last 24 hrs: Laboratory Results - last 24 hr 07/18/18 07/18/18 07/19/18 Range/Units 23:25 23:25 22:21 WBC (3.98-10.04) K/mm3 RBC (3.98-5.22) M/mm3 Hgb (11.2-15.7) gm/L Hct (34.1-44.9) % MCV (79.4-94.8) fl MCH (25.6-32.2) pg MCHC (32.2-35.5) g/dl RDW Std Deviation (36.4-46.3) fL Plt Count (182-369) K/mm3 MPV (9.4-12.3) fl Neut % (Auto) (34.0-71.1) % Lymph % (Auto) (19.3-51.7) % [place] % (Auto) (4.7-12.5) % Eos % (Auto) (0.7-5.8) Baso % (Auto) (0.1-1.2) % Neut # (Auto) (1.56-6.13) K/mm3 Lymph # (Auto) (1.18-3.74) K/mm3 [place] # (Auto) (0.24-0.36) K/mm3 Eos # (Auto) (0.04-0.36) K/mm3 Baso # (Auto) (0.01-0.08) K/mm3 Manual Slide Review Sodium (136-145) mEq/L Potassium (3.5-5.1) mEq/L Chloride (98-107) mEq/L Carbon Dioxide (21-32) mEq/L Anion Gap (5-15) BUN (7-18) mg/dL Creatinine (0.55-1.02) mg/dL Est Cr Clr Drug Dosing mL/min Estimated GFR (MDRD) (>60) mL/min BUN/Creatinine Ratio (14-18) Glucose (74-106) mg/dL POC Glucose 259 H (70-105) mg/dL Calcium (8.5-10.1) mg/dL Magnesium (1.8-2.4) mg/dl C-Reactive Protein (<1.0) mg/dL Procalcitonin 5.22 H (<0.10) ng/mL HCG, Qual (NEGATIVE) Cortisol 12.7 ug/dL Vancomycin Trough (10.0-20.0) 07/19/18 07/20/18 07/20/18 Range/Units 22:30 05:02 05:12 WBC 61.93 H (3.98-10.04) K/mm3 RBC 3.54 L (3.98-5.22) M/mm3 Hgb 9.8 L (11.2-15.7) gm/L Hct 29.7 L (34.1-44.9) % MCV 83.9 (79.4-94.8) fl MCH 27.7 (25.6-32.2) pg MCHC 33.0 (32.2-35.5) g/dl RDW Std Deviation 41.9 (36.4-46.3) fL Plt Count 364 (182-369) K/mm3 MPV 9.6 (9.4-12.3) fl Neut % (Auto) 94.4 H (34.0-71.1) % Lymph % (Auto) 2.1 L (19.3-51.7) % [place] % (Auto) 2.0 L (4.7-12.5) % Eos % (Auto) 0 L (0.7-5.8) Baso % (Auto) 0.1 (0.1-1.2) % Neut # (Auto) 58.53 H (1.56-6.13) K/mm3 Lymph # (Auto) 1.28 (1.18-3.74) K/mm3 [place] # (Auto) 1.22 H (0.24-0.36) K/mm3 Eos # (Auto) 0.00 L (0.04-0.36) K/mm3 Baso # (Auto) 0.04 (0.01-0.08) K/mm3 Manual Slide Review Abnormal smear Sodium 132 L (136-145) mEq/L Potassium 5.3 H (3.5-5.1) mEq/L Chloride 106 (98-107) mEq/L Carbon Dioxide 11 L (21-32) mEq/L Anion Gap 20.3 H (5-15) BUN 55 H (7-18) mg/dL Creatinine 3.9 H (0.55-1.02) mg/dL Est Cr Clr Drug Dosing 18.78 mL/min Estimated GFR (MDRD) 13 (>60) mL/min BUN/Creatinine Ratio 14.1 (14-18) Glucose 189 H (74-106) mg/dL POC Glucose (70-105) mg/dL Calcium 7.3 L (8.5-10.1) mg/dL Magnesium 2.2 (1.8-2.4) mg/dl C-Reactive Protein 22.8 H* (<1.0) mg/dL Procalcitonin (<0.10) ng/mL HCG, Qual (NEGATIVE) Cortisol ug/dL Vancomycin Trough 25.6 H (10.0-20.0) 07/20/18 07/20/18 07/20/18 Range/Units 05:46 07:54 11:06 WBC (3.98-10.04) K/mm3 RBC (3.98-5.22) M/mm3 Hgb (11.2-15.7) gm/L Hct (34.1-44.9) % MCV (79.4-94.8) fl MCH (25.6-32.2) pg MCHC (32.2-35.5) g/dl RDW Std Deviation (36.4-46.3) fL Plt Count (182-369) K/mm3 MPV (9.4-12.3) fl Neut % (Auto) (34.0-71.1) % Lymph % (Auto) (19.3-51.7) % [place] % (Auto) (4.7-12.5) % Eos % (Auto) (0.7-5.8) Baso % (Auto) (0.1-1.2) % Neut # (Auto) (1.56-6.13) K/mm3 Lymph # (Auto) (1.18-3.74) K/mm3 [place] # (Auto) (0.24-0.36) K/mm3 Eos # (Auto) (0.04-0.36) K/mm3 Baso # (Auto) (0.01-0.08) K/mm3 Manual Slide Review Sodium (136-145) mEq/L Potassium (3.5-5.1) mEq/L Chloride (98-107) mEq/L Carbon Dioxide (21-32) mEq/L Anion Gap (5-15) BUN (7-18) mg/dL Creatinine (0.55-1.02) mg/dL Est Cr Clr Drug Dosing mL/min Estimated GFR (MDRD) (>60) mL/min BUN/Creatinine Ratio (14-18) Glucose (74-106) mg/dL POC Glucose 189 H 208 H (70-105) mg/dL Calcium (8.5-10.1) mg/dL Magnesium (1.8-2.4) mg/dl C-Reactive Protein (<1.0) mg/dL Procalcitonin (<0.10) ng/mL HCG, Qual Negative (NEGATIVE) Cortisol ug/dL Vancomycin Trough (10.0-20.0) 07/20/18 Range/Units 17:28 WBC (3.98-10.04) K/mm3 RBC (3.98-5.22) M/mm3 Hgb (11.2-15.7) gm/L Hct (34.1-44.9) % MCV (79.4-94.8) fl MCH (25.6-32.2) pg MCHC (32.2-35.5) g/dl RDW Std Deviation (36.4-46.3) fL Plt Count (182-369) K/mm3 MPV (9.4-12.3) fl Neut % (Auto) (34.0-71.1) % Lymph % (Auto) (19.3-51.7) % [place] % (Auto) (4.7-12.5) % Eos % (Auto) (0.7-5.8) Baso % (Auto) (0.1-1.2) % Neut # (Auto) (1.56-6.13) K/mm3 Lymph # (Auto) (1.18-3.74) K/mm3 [place] # (Auto) (0.24-0.36) K/mm3 Eos # (Auto) (0.04-0.36) K/mm3 Baso # (Auto) (0.01-0.08) K/mm3 Manual Slide Review Sodium (136-145) mEq/L Potassium (3.5-5.1) mEq/L Chloride (98-107) mEq/L Carbon Dioxide (21-32) mEq/L Anion Gap (5-15) BUN (7-18) mg/dL Creatinine (0.55-1.02) mg/dL Est Cr Clr Drug Dosing mL/min Estimated GFR (MDRD) (>60) mL/min BUN/Creatinine Ratio (14-18) Glucose (74-106) mg/dL POC Glucose 130 H (70-105) mg/dL Calcium (8.5-10.1) mg/dL Magnesium (1.8-2.4) mg/dl C-Reactive Protein (<1.0) mg/dL Procalcitonin (<0.10) ng/mL HCG, Qual (NEGATIVE) Cortisol ug/dL Vancomycin Trough (10.0-20.0) Result Diagrams: 07/20/18 05:02 07/20/18 05:12 B[facility] Results Last 24 hrs: Microbiology 07/18/18 17:20 Gram Stain - Final Toe, Left - Left Fourth Anaerobic Culture - Preliminary Beta Streptococcus Group B 07/17/18 22:30 Aerobic Blood Culture - Preliminary Blood - Venous NO GROWTH AFTER 2 DAYS Anaerobic Blood Culture - Preliminary NO GROWTH AFTER 2 DAYS 07/17/18 22:35 Aerobic Blood Culture - Preliminary Blood - Venous - Lab Draw NO GROWTH AFTER 2 DAYS Anaerobic Blood Culture - Preliminary NO GROWTH AFTER 2 DAYS Consult PN Assessment/Plan Procedures: Procedures ASSAY OF LACTIC ACID (04/20/18) COMPLETE CBC W/AUTO DIFF WBC (04/20/18) COMPREHEN METABOLIC PANEL (04/20/18) EMERGENCY DEPT VISIT (06/16/18) EMERGENCY DEPT VISIT (04/20/18) GLUCOSE BLOOD TEST (04/20/18) HYDRATE IV INFUSION ADD-ON (04/20/18) ROUTINE VENIPUNCTURE (04/20/18) THER/PROPH/DIAG INJ IV PUSH (04/20/18) THER/PROPH/DIAG IV INF INIT (06/16/18) TX/PRO/DX INJ NEW DRUG ADDON (06/16/18) X-RAY EXAM OF TOE(S) (06/16/18) Problem List Initiated/Reviewed/Updated: Yes Plan: A: left foot osteomyelitis P: At this time I ordered an MRI which showed diffuse osteomyelitis of the left fourth metatarsal as well as beginning in the fifth metatarsal. There is no large fluid collection or abscess seen on MRI. At this time secondary to the swelling and no abscess I would recommend IV antibiotics and then reevaluation in a couple days to see if she is responding. I discussed with the patient that secondary to the destruction of the fourth distal metatarsal already that there is a good chance that we will have to do a left foot fourth and fifth ray amputation and possibly even more depending if she responds tot he antibiotics in the future. The patient is in understanding and will be reevaluated in 3-4 days or sooner if her condition or foot worsens.
[2018-07-20] MEDS: Rosuvastatin 10 MG Tab PO SCH (20:14)
[2018-07-20] MEDS: Temazepam 15 MG Cap PO PRN (21:45)
[2018-07-21] MEDS: Hydrocortisone Sodium Succinate 100 MG/2 ML SDV IVPUSH SCH ×2 (03:09→05:25)
[2018-07-21] MEDS: Piperacillin/Tazobactam 4.5 GM in Sodium Chloride 0.9% 100 ML IV SCH (03:09)
[2018-07-21] MEDS: Pantoprazole 40 MG Tab.CR PO SCH (05:25)
[2018-07-21] MEDS: Insulin Lispro 100 Units/ML 3 ML Vial SUBCUT SCH (06:02)
[2018-07-21] MEDS: Midodrine 5 MG Tab PO SCH (06:03)
[2018-07-21] MEDS: Insulin Glarg,Human.Rec.Analog 100 UNIT/ML ML SUBCUT SCH (08:00)
[2018-07-21] MEDS ORDERED: Albumin 25% 12.5 GM/50 ML BAG IV SCH (08:00)
[2018-07-21] MEDS ORDERED: SODIUM CHLORIDE 0.9% IV ONE (08:30)
[2018-07-21] MEDS ORDERED: SODIUM BICARBONATE IV ONE (08:30)
[2018-07-21] MEDS: hydrOXYzine HCl 25 MG Tab PO SCH (09:21)
[2018-07-21] MEDS: Saccharomyces Boulardii (Probiotic) 250 MG Cap PO SCH (09:21)
[2018-07-21] MEDS: DULoxetine 30 MG Cap PO SCH (09:21)
--- NOTE | 2018-07-21 09:30 | PCM.SN ---
- Free Text/Narrative Note: Notified by night nurse that her renal function has declined significantly with a urine output of only 70ml overnight and a Bicarb of 8. Called Anesthesia and spoke to STEPHIE Osman. He expressed concerns of possible hemodynamic complications with her oliguric renal failure and with significantly low bicarb level. So we decided not to proceed with scheduled surgery this AM. I then called [facility] and discussed her case with Dr. Phillips, on-call tax commissioner. He recommended albumin and bicarb infusion. Offered patient to stay and received further treatment but she chose for lateral transfer.
--- NOTE | 2018-07-21 09:30 | PCM.DCSUM1 ---
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 She was seen in ED about a month ago due to draining lesion at the medial aspect of her foot. She was treated with oral Doxycycline and was told to follow up with Dr. Hernandez. Unfortunately, she did not get around to it. However a CT scan of her foot revealed osteomyelitis. She comes back to ED for worsening symptoms. She denies having any fever or chills. Her initial work up shows a CBC remarkable for WBC of 43.08, RBC of 2.40, Hgb of 6.5, Hct of 19.9, RDW of 36.2, MPV of 9.2, Neutrophils of 78%, with Bands of 13% and Lymphocytes of 3%. Her Chemistry is significant for Na of 131, CO2 of 19 , BUN of 40, Cr of 3.1, BS of 73, Ca of 8.2, Alk Phos, 152, CRP of 20.2, Total Protein of 6.2, and Albumin of 1.0. Her UA is not suggestive of UTI. Foot CT scan report read osteolytic process affecting 4th digit. Foot MRI report reads bone marrow edema within the shaft of the fourth metatarsal as well as within the distal 5th metatarsal. Findings are compatible with osteomyelitis. Diffuse soft tissue swelling asymmetrically worse around the 4th and 5th toes. This is compatible with prominent cellulitis. Patient was admitted overnight for Left Foot Cellulitis with Osteomyelitis. Diagnosis: Stroke: No Modified Pham Scale: No Symptoms at All Modified Pham Scale Score: 0 - Discharge Data Discharge Date: 07/21/18 Discharge Disposition: DC/Tfer to Acute Hospital 02 Condition: Good - Discharge Diagnosis/Problem(s) (1) Severe sepsis SNOMED Code(s): 81832172 ICD Code: A41.9 - SEPSIS, UNSPECIFIED ORGANISM; R65.20 - SEVERE SEPSIS WITHOUT SEPTIC SHOCK Status: Acute (2) Cellulitis of left foot SNOMED Code(s): 889137203 ICD Code: L03.116 - CELLULITIS OF LEFT LOWER LIMB Status: Acute (3) Acute osteomyelitis of toe of left foot SNOMED Code(s): 651502465 ICD Code: M86.172 - OTHER ACUTE OSTEOMYELITIS, LEFT ANKLE AND FOOT Status: Acute (4) Anemia SNOMED Code(s): 769392892 ICD Code: D64.9 - ANEMIA, UNSPECIFIED Status: Acute Qualifiers: Anemia type: unspecified type Qualified Code(s): D64.9 - Anemia, unspecified (5) Hyperkalemia SNOMED Code(s): 52466541 ICD Code: E87.5 - HYPERKALEMIA Status: Acute (6) Hypomagnesemia SNOMED Code(s): 187362706 ICD Code: E83.42 - HYPOMAGNESEMIA Status: Acute (7) Hypoalbuminemia due to protein-calorie malnutrition SNOMED Code(s): 173668463, 597309851 ICD Code: E46 - UNSPECIFIED PROTEIN-CALORIE MALNUTRITION Status: Acute (8) DM2 (diabetes mellitus, type 2) SNOMED Code(s): 77649226 ICD Code: E11.9 - TYPE 2 DIABETES MELLITUS WITHOUT COMPLICATIONS Status: Acute (9) Acute on chronic kidney failure SNOMED Code(s): 348002727 ICD Code: N17.9 - ACUTE KIDNEY FAILURE, UNSPECIFIED; N18.9 - CHRONIC KIDNEY DISEASE, UNSPECIFIED Status: Acute (10) Acute worsening of stage 3 chronic kidney disease SNOMED Code(s): 607745137, 579839361 ICD Code: N18.3 - CHRONIC KIDNEY DISEASE, STAGE 3 (MODERATE) Status: Acute (11) Metabolic acidosis SNOMED Code(s): 61708701 ICD Code: E87.2 - ACIDOSIS Status: Acute - Patient Summary/Data Operative Procedure(s) Performed: None Complications: Oliguric Renal Failure Consults: Consultations 07/17/18 23:20 Consult to Case Management/Vegetable Farm Manager [CONS] Routine Consult to Diabetic Nurse Specialist [CONS] Routine Consult to Convention Manager [CONS] Routine Consult to Physician [CONS] Routine Consult to Spiritual Care [CONS] Routine OT Evaluation and Treatment [CONS] Routine PT Evaluation and Treatment [CONS] Routine Labs Pending at D/C: None Recommended Follow-up Testing/Procedures: None Planned Operative Procedure(s) after DC: None - Patient Instructions Diet: NPO Activity: As Tolerated Driving: Do Not Drive Notify Provider of: Fever, Increased Pain, Swelling and Redness, Nausea and/or Vomiting Other/Special Instructions: - Transfer to [facility] under the services of Dr. Cresencio Dahl, Hospitalist. Dr. Phillips, nephrology, consulting. - Discharge Plan *PRESCRIPTION DRUG MONITORING PROGRAM REVIEWED*: Not Applicable *COPY OF PRESCRIPTION DRUG MONITORING REPORT IN PATIENT MIGUEL: Not Applicable Home Medications: Home Meds Carvedilol [Coreg] 25 mg PO DAILY 06/16/18 [History] DULoxetine [Cymbalta] 30 mg PO BID 06/16/18 [History] Furosemide 40 mg PO DAILY 06/16/18 [History] Insulin Aspart [NovoLOG] 0 units SQ BID 06/16/18 [History] Insulin Detemir [Levemir] 15 units SQ DAILY 06/16/18 [History] Lisinopril 20 mg PO BID 06/16/18 [History] Pantoprazole [ProTONIX] 40 mg PO DAILY 06/16/18 [History] amLODIPine Besylate [Amlodipine Besylate] 10 mg PO DAILY 06/16/18 [History] atorvaSTATin [Lipitor] 80 mg PO BEDTIME 06/16/18 [History] hydrOXYzine HCl [hydrOXYzine] 25 mg PO BID 06/16/18 [History] Acetaminophen [Tylenol] 650 mg PO Q4HR PRN 07/18/18 [History] Ibuprofen [Ibu] 600 mg PO TID 07/18/18 [History] Non-Formulary Medication [NF Drug] 500 mg PO TID 07/18/18 [History] Oxygen Therapy Mode: Room Air Patient Handouts: Bone and Joint Infections, Adult Referrals: Kobe Galan MD [Primary Care Provider] - - Discharge Summary/Plan Comment DC Time >30 min.: No Discharge Summary/Plan Comment: Transfer to [facility] under the services of Dr. Cresencio Dahl, Hospitalist attending. - General Info Date of Service: 07/21/18 Admission Dx/Problem (Free Text: Admission Diagnosis/Problem Admission Diagnosis/Problem Osteomyelitis of foot Subjective Update: Follow Up Functional Status: Reports: Tolerating Diet, Urinating. Denies: Pain Controlled , Ambulating, New Symptoms Numeric/FACES Score: 8 - Review of Systems General: Denies: Fever, Chills HEENT: Reports: No Symptoms Pulmonary: Denies: Shortness of Breath Cardiovascular: Denies: Chest Pain, Dyspnea on Exertion, Lightheadedness Gastrointestinal: Denies: Abdominal Pain, Nausea, Vomiting Genitourinary: Reports: No Symptoms Musculoskeletal: Reports: Foot Pain Skin: Denies: Cyanosis, Pallor, Diaphoresis, Bruising Neurological: Reports: Difficulty Walking, Gait Disturbance. Denies: Confusion Psychiatric: Denies: Depression, Anxiety, Agitation, Hallucinations - Patient Data Vitals - Most Recent: Last Vital Signs Temp 35.5 C 07/21/18 04:00 Pulse 58 L 07/21/18 04:00 Resp 16 07/21/18 04:00 BP 93/58 L 07/21/18 04:00 Pulse Ox 94 L 07/21/18 04:00 Weight - Most Recent: 105.778 kg I&O - Last 24 hours: Intake & Output 07/20/18 07/21/18 07/21/18 22:59 06:59 14:59 Intake Total 4055 Output Total 85 70 Balance 3970 -70 Lab Results - Last 24 hrs: Laboratory Results - last 24 hr 07/20/18 07/20/18 07/20/18 Range/Units 11:06 17:28 21:44 WBC (3.98-10.04) K/mm3 RBC (3.98-5.22) M/mm3 Hgb (11.2-15.7) gm/L Hct (34.1-44.9) % MCV (79.4-94.8) fl MCH (25.6-32.2) pg MCHC (32.2-35.5) g/dl RDW Std Deviation (36.4-46.3) fL Plt Count (182-369) K/mm3 MPV (9.4-12.3) fl Neut % (Auto) Lymph % (Auto) Ste[place]s % (Auto) Eos % (Auto) Baso % (Auto) Neut # (Auto) Lymph # (Auto) Ste[place]s # (Auto) Eos # (Auto) Baso # (Auto) Neutrophils % (Manual) (40-60) % Band Neutrophils % (0-10) % Lymphocytes % (Manual) (20-40) % Atypical Lymphs % % Monocytes % (Manual) (2-10) % Eosinophils % (Manual) (0.7-5.8) % Basophils % (Manual) (0.1-1.2) Manual Slide Review Platelet Estimate Hypochromasia Anisocytosis Goodrich Cells RBC Morph Comment Sodium (136-145) mEq/L Potassium (3.5-5.1) mEq/L Chloride (98-107) mEq/L Carbon Dioxide (21-32) mEq/L Anion Gap (5-15) BUN (7-18) mg/dL Creatinine (0.55-1.02) mg/dL Est Cr Clr Drug Dosing mL/min Estimated GFR (MDRD) (>60) mL/min BUN/Creatinine Ratio (14-18) Glucose (74-106) mg/dL POC Glucose 208 H 130 H 144 H (70-105) mg/dL Calcium (8.5-10.1) mg/dL Magnesium (1.8-2.4) mg/dl C-Reactive Protein (<1.0) mg/dL Vancomycin Trough (10.0-20.0) Blood Type Gel Antibody Screen 07/21/18 07/21/18 07/21/18 Range/Units 00:20 05:07 05:33 WBC 53.39 H (3.98-10.04) K/mm3 RBC 3.84 L (3.98-5.22) M/mm3 Hgb 10.8 L (11.2-15.7) gm/L Hct 32.3 L (34.1-44.9) % MCV 84.1 (79.4-94.8) fl MCH 28.1 (25.6-32.2) pg MCHC 33.4 (32.2-35.5) g/dl RDW Std Deviation 43.3 (36.4-46.3) fL Plt Count 365 (182-369) K/mm3 MPV 9.5 (9.4-12.3) fl Neut % (Auto) Cancelled Lymph % (Auto) Cancelled Stearns % (Auto) Cancelled Eos % (Auto) Cancelled Baso % (Auto) Cancelled Neut # (Auto) Cancelled Lymph # (Auto) Cancelled Stearns # (Auto) Cancelled Eos # (Auto) Cancelled Baso # (Auto) Cancelled Neutrophils % (Manual) 93 H (40-60) % Band Neutrophils % 0 (0-10) % Lymphocytes % (Manual) 5 L (20-40) % Atypical Lymphs % 0 % Monocytes % (Manual) 2 (2-10) % Eosinophils % (Manual) 0 L (0.7-5.8) % Basophils % (Manual) 0 L (0.1-1.2) Manual Slide Review Cancelled Platelet Estimate Adequate Hypochromasia 1+ slight Anisocytosis 2+ moderate Goodrich Cells RBC Morph Comment Abnormal Sodium (136-145) mEq/L Potassium (3.5-5.1) mEq/L Chloride (98-107) mEq/L Carbon Dioxide (21-32) mEq/L Anion Gap (5-15) BUN (7-18) mg/dL Creatinine (0.55-1.02) mg/dL Est Cr Clr Drug Dosing mL/min Estimated GFR (MDRD) (>60) mL/min BUN/Creatinine Ratio (14-18) Glucose (74-106) mg/dL POC Glucose 139 H (70-105) mg/dL Calcium (8.5-10.1) mg/dL Magnesium (1.8-2.4) mg/dl C-Reactive Protein (<1.0) mg/dL Vancomycin Trough 34.1 H (10.0-20.0) Blood Type Gel Antibody Screen 07/21/18 07/21/18 Range/Units 05:33 05:33 WBC (3.98-10.04) K/mm3 RBC (3.98-5.22) M/mm3 Hgb (11.2-15.7) gm/L Hct (34.1-44.9) % MCV (79.4-94.8) fl MCH (25.6-32.2) pg MCHC (32.2-35.5) g/dl RDW Std Deviation (36.4-46.3) fL Plt Count (182-369) K/mm3 MPV (9.4-12.3) fl Neut % (Auto) Lymph % (Auto) Ste[place]s % (Auto) Eos % (Auto) Baso % (Auto) Neut # (Auto) Lymph # (Auto) Ste[place]s # (Auto) Eos # (Auto) Baso # (Auto) Neutrophils % (Manual) (40-60) % Band Neutrophils % (0-10) % Lymphocytes % (Manual) (20-40) % Atypical Lymphs % % Monocytes % (Manual) (2-10) % Eosinophils % (Manual) (0.7-5.8) % Basophils % (Manual) (0.1-1.2) Manual Slide Review Platelet Estimate Hypochromasia Anisocytosis Goodrich Cells RBC Morph Comment Sodium 133 L (136-145) mEq/L Potassium 5.2 H (3.5-5.1) mEq/L Chloride 108 H (98-107) mEq/L Carbon Dioxide 8 L* (21-32) mEq/L Anion Gap 22.2 H (5-15) BUN 64 H (7-18) mg/dL Creatinine 4.2 H (0.55-1.02) mg/dL Est Cr Clr Drug Dosing 16.83 mL/min Estimated GFR (MDRD) 12 (>60) mL/min BUN/Creatinine Ratio 15.2 (14-18) Glucose 142 H (74-106) mg/dL POC Glucose (70-105) mg/dL Calcium 7.3 L (8.5-10.1) mg/dL Magnesium 2.0 (1.8-2.4) mg/dl C-Reactive Protein 12.2 H* (<1.0) mg/dL Vancomycin Trough (10.0-20.0) Blood Type O POSITIVE Gel Antibody Screen Negative MICHELL Results - Last 24 hrs: Microbiology 07/17/18 22:30 Aerobic Blood Culture - Preliminary Blood - Venous NO GROWTH AFTER 3 DAYS Anaerobic Blood Culture - Preliminary NO GROWTH AFTER 3 DAYS 07/17/18 22:35 Aerobic Blood Culture - Preliminary Blood - Venous - Lab Draw NO GROWTH AFTER 3 DAYS Anaerobic Blood Culture - Preliminary NO GROWTH AFTER 3 DAYS 07/18/18 17:20 Gram Stain - Final Toe, Left - Left Fourth Anaerobic Culture - Preliminary Beta Streptococcus Group B Med Orders - Current: Current Medications Acetaminophen (Tylenol) 650 mg PO Q4H PRN PRN Reason: Pain (Mild 1-3)/fever Last Admin: 07/20/18 03:56 Dose: 650 mg Hydrocodone Bitart/Acetaminophen ([place] 325-5 Mg) 1 tab PO Q4H PRN PRN Reason: Pain (moderate 4-6) Last Admin: 07/20/18 02:06 Dose: 1 tab Albuterol/Ipratropium (Duoneb 3.0-0.5 Mg/3 Ml) 3 ml NEB Q4H PRN PRN Reason: Shortness Of Breath/wheezing Amlodipine Besylate (Norvasc) 10 mg PO DAILY [facility] Last Admin: 07/18/18 09:18 Dose: Not Given Bisacodyl (Dulcolax) 5 mg PO DAILY PRN PRN Reason: Constipation Carvedilol (Coreg) 25 mg PO DAILY [facility] Last Admin: 07/18/18 09:18 Dose: Not Given Dextrose/Water (Dextrose 50% In Water) 50 ml IV ASDIRECTED PRN PRN Reason: Hypoglycemia Docusate Sodium (Colace) 100 mg PO BID PRN PRN Reason: Constipation Last Admin: 07/20/18 10:58 Dose: 100 mg Duloxetine HCl (Cymbalta) 30 mg PO BID [facility] Last Admin: 07/21/18 09:21 Dose: Not Given Furosemide (Lasix) 40 mg PO DAILY [facility] Last Admin: 07/18/18 09:18 Dose: Not Given Hydralazine HCl (Apresoline) 20 mg IVPUSH Q4H PRN PRN Reason: Hypertension Hydrocortisone Sodium Succinate (Solu-Cortef) 100 mg IVPUSH Q6H [facility] Last Admin: 07/21/18 05:25 Dose: Not Given Hydromorphone HCl (Dilaudid) 1 mg IVPUSH Q6H PRN PRN Reason: Pain (severe 7-10) Last Admin: 07/20/18 21:23 Dose: 1 mg Hydroxyzine HCl (Atarax) 25 mg PO BID [facility] Last Admin: 07/21/18 09:21 Dose: Not Given Sodium Chloride (Normal Saline) 1,000 mls @ 250 mls/hr IV ASDIRECTED [facility] Last Admin: 07/20/18 21:22 Dose: 250 mls/hr Norepinephrine Bitartrate 4 mg (/ Dextrose/Water) 250 mls @ 7.5 mls/hr IV TITRATE [facility]; Protocol Last Titration: 07/20/18 14:45 Dose: 0 mcg/min, 0 mls/hr Levofloxacin/Dextrose (Levaquin In D5w 250 Mg/50 Ml) 100 mls @ 100 mls/hr IV Q48H [facility] Piperacillin Sod/Tazobactam (Sod 4.5 gm/ Sodium Chloride) 100 mls @ 25 mls/hr IV Q12H [facility] Last Admin: 07/21/18 03:09 Dose: Not Given Albumin Human (Flexbumin 25%) 12.5 gm in 50 mls @ 50 mls/hr IV BID [facility] Last Admin: 07/21/18 09:21 Dose: Not Given Sodium Bicarbonate 50 meq/ (Sodium Chloride) 300 mls @ 75 mls/hr IV ONETIME ONE Stop: 07/21/18 12:29 Last Admin: 07/21/18 09:21 Dose: Not Given Insulin Glargine (Lantus) 15 unit SUBCUT DAILY [facility] Last Admin: 07/21/18 08:00 Dose: Not Given Insulin Human Lispro (Humalog) 0 unit SUBCUT QIDACANDBED [facility]; Protocol Last Admin: 07/21/18 06:02 Dose: Not Given Lisinopril (Prinivil) 20 mg PO BID [facility] Last Admin: 07/18/18 09:18 Dose: Not Given Lorazepam (Ativan) 1 mg IV Q6H PRN PRN Reason: Anxiety Last Admin: 07/20/18 03:58 Dose: 1 mg Magnesium Sulfate (Pharmacy To Dose - Magnesium Replacement) 0 dose .XX ASDIRECTED PRN PRN Reason: RX TO WATCH MAG Metoprolol Tartrate (Lopressor) 5 mg IVPUSH Q4H PRN PRN Reason: Tachycardia Midodrine (Midodrine) 5 mg PO TIDAC [facility] Last Admin: 07/21/18 06:03 Dose: Not Given Ondansetron HCl (Zofran) 4 mg IV Q6H PRN PRN Reason: Nausea/Vomiting Last Admin: 07/18/18 13:00 Dose: 4 mg Oxycodone HCl (Oxycontin) 10 mg PO Q12HR [facility] Last Admin: 07/20/18 20:14 Dose: 10 mg Pantoprazole Sodium (Protonix) 40 mg PO ACBREAKFAST [facility] Last Admin: 07/21/18 05:25 Dose: Not Given Polyethylene Glycol (Miralax) 17 gm PO DAILY PRN PRN Reason: Constipation Potassium Chloride (Pharmacy To Dose - Potassium Replacement) 0 dose .XX ASDIRECTED PRN PRN Reason: RX TO WATCH K Rosuvastatin Calcium (Crestor) 20 mg PO BEDTIME [facility] Last Admin: 07/20/18 20:14 Dose: 20 mg Saccharomyces Boulardii (Florastor) 250 mg PO BID [facility] Last Admin: 07/21/18 09:21 Dose: Not Given Senna/Docusate Sodium (Senna Plus) 1 tab PO BID PRN PRN Reason: Constipation Temazepam (Restoril) 15 mg PO BEDTIME PRN PRN Reason: Insomnia Last Admin: 07/20/18 21:45 Dose: 15 mg Vancomycin HCl (Pharmacy To Dose - Vancomycin) 0 dose .XX ASDIRECTED PRN PRN Reason: RX TO DOSE VANCO Discontinued Medications Dextrose/Water (Dextrose 50% In Water) 50 ml IVPUSH ASDIRECTED PRN PRN Reason: Hypoglycemia Diphenhydramine HCl (Benadryl) 25 mg IVPUSH ONETIME ONE Stop: 07/19/18 22:50 Last Admin: 07/19/18 22:56 Dose: 25 mg Diphenhydramine HCl (Benadryl) Confirm Administered Dose 50 mg .ROUTE .STK-MED ONE Stop: 07/19/18 22:52 Last Admin: 07/19/18 22:57 Dose: Not Given Enoxaparin Sodium (Lovenox) 30 mg SUBCUT DAILY [facility] Last Admin: 07/19/18 10:34 Dose: 30 mg Hydromorphone HCl (Dilaudid) 0.5 mg IVPUSH Q2H PRN PRN Reason: Pain (severe 7-10) Hydromorphone HCl (Dilaudid) 1 mg IVPUSH Q6HR PRN PRN Reason: Pain Last Admin: 07/18/18 01:20 Dose: 1 mg Hydromorphone HCl (Dilaudid) 2 mg IVPUSH Q4H PRN PRN Reason: Pain Last Admin: 07/18/18 14:15 Dose: 1 mg Hydromorphone HCl (Dilaudid) 1 mg IVPUSH Q4H PRN PRN Reason: Pain (severe 7-10) Last Admin: 07/19/18 13:36 Dose: 1 mg Metronidazole 500 mg/ Premix 100 mls @ 100 mls/hr IV Q8H [facility] Last Admin: 07/18/18 00:02 Dose: Not Given Vancomycin HCl 1.5 gm/ Sodium (Chloride) 250 mls @ 250 mls/hr IV Q12H [facility] Last Admin: 07/18/18 00:03 Dose: Not Given Vancomycin HCl 1.25 gm/ Sodium (Chloride) 250 mls @ 250 mls/hr IV Q24H [facility] Last Admin: 07/17/18 23:55 Dose: 250 mls/hr Levofloxacin/Dextrose 750 mg/ (Premix) 150 mls @ 100 mls/hr IV Q48H [facility] Last Admin: 07/18/18 00:03 Dose: Not Given Sodium Chloride (Normal Saline) 1,000 mls @ 125 mls/hr IV ASDIRECTED [facility] Last Admin: 07/18/18 06:37 Dose: 125 mls/hr Levofloxacin/Dextrose 750 mg/ (Premix) 150 mls @ 100 mls/hr IV Q48H [facility] Piperacillin Sod/Tazobactam (Sod 4.5 gm/ Sodium Chloride) 100 mls @ 25 mls/hr IV Q8H [facility] Last Admin: 07/20/18 02:09 Dose: 25 mls/hr Sodium Chloride (Normal Saline) 500 mls @ 999 mls/hr IV .BOLUS ONE Stop: 07/18/18 00:00 Last Admin: 07/17/18 23:53 Dose: 999 mls/hr Sodium Chloride (Normal Saline) 1,000 mls @ 125 mls/hr IV ASDIRECTED [facility] Potassium Chloride 10 meq/ (Premix) 100 mls @ 100 mls/hr IV Q1H [facility] Stop: 07/18/18 05:59 Piperacillin Sod/Tazobactam (Sod 4.5 gm/ Sodium Chloride) 100 mls @ 200 mls/hr IV ONETIME ONE Stop: 07/18/18 03:29 Last Admin: 07/18/18 02:26 Dose: 200 mls/hr Magnesium Sulfate 4 gm/ Premix 50 mls @ 12.5 mls/hr IV ONETIME ONE Stop: 07/18/18 13:59 Last Admin: 07/18/18 09:59 Dose: 12.5 mls/hr Sodium Chloride (Normal Saline) 1,000 mls @ 999 mls/hr IV .BOLUS ONE Stop: 07/18/18 10:53 Last Admin: 07/18/18 09:59 Dose: 999 mls/hr Vancomycin HCl 1 gm/Vancomycin HCl 250 mg/ Sodium Chloride 250 mls @ 166.667 mls/hr IV Q24H [facility] Last Admin: 07/19/18 23:54 Dose: Not Given Levofloxacin/Dextrose 500 mg/ (Premix) 100 mls @ 100 mls/hr IV Q24H [facility] Last Admin: 07/19/18 22:17 Dose: 100 mls/hr Sodium Chloride (Normal Saline) 1,000 mls @ 999 mls/hr IV ONETIME ONE Stop: 07/18/18 23:15 Last Infusion: 07/18/18 23:50 Dose: 250 mls/hr Vancomycin HCl 0.75 gm/ Sodium (Chloride) 250 mls @ 250 mls/hr IV Q24H [facility] Last Admin: 07/20/18 10:41 Dose: Not Given Sodium Chloride (Normal Saline) 1,000 mls @ 999 mls/hr IV ONETIME ONE Stop: 07/19/18 23:24 Last Admin: 07/20/18 01:35 Dose: Not Given Vancomycin HCl 1 gm/ Sodium (Chloride) 250 mls @ 250 mls/hr IV Q36H [facility] Last Admin: 07/20/18 10:56 Dose: 250 mls/hr Midodrine (Midodrine) 5 mg PO TIDAC [facility] Stop: 07/19/18 07:01 Last Admin: 07/19/18 08:19 Dose: 5 mg Midodrine (Midodrine) 5 mg PO NOW STA Stop: 07/18/18 09:53 Last Admin: 07/18/18 10:25 Dose: 5 mg Norepinephrine Bitartrate (Levophed) Confirm Administered Dose 4 mg .ROUTE .STK- MED ONE Stop: 07/19/18 22:28 Last Admin: 07/20/18 08:28 Dose: Not Given Potassium Chloride (Klor-Con M20) 40 meq PO Q4H [facility] Stop: 07/18/18 05:31 Last Admin: 07/18/18 05:53 Dose: 40 meq Potassium Chloride (Klor-Con M20) 40 meq PO ONETIME ONE Stop: 07/18/18 10:01 Last Admin: 07/18/18 09:58 Dose: 40 meq Temazepam (Restoril) 7.5 mg PO BEDTIME PRN PRN Reason: Sleep Vancomycin HCl (Vancomycin) 1,136.25 mg 15 mg/kg (1136.25 mg) IV Q12H [facility] Last Admin: 07/18/18 01:38 Dose: Not Given - Exam General: Reports: Alert, Oriented, Cooperative, No Acute Distress HEENT: Reports: Pupils Equal, Pupils Reactive, EOMI, Mucous Membr. Moist/[place] Neck: Reports: Supple Lungs: Reports: Clear to Auscultation, Normal Respiratory Effort Cardiovascular: Reports: Regular Rate, Regular Rhythm GI/Abdominal Exam: Normal Bowel Sounds, Soft, Non-Tender, No Organomegaly, No Distention, No Abnormal Bruit (Female) Exam: Other (indwelling yo catheter) Rectal (Female) Exam: Deferred Back Exam: Reports: Normal Inspection, Decreased Range of Motion Extremities: Other (left foot: wrapped with gauze (clean and dry)) Skin: Reports: Warm, Dry, Intact Neurological: Reports: No New Focal Deficit (limited due to pain/discomfort with movement). Denies: Normal Gait Psy/Mental Status: Reports: Alert, Normal Affect, Normal Mood
--- NOTE | 2018-07-21 11:09 | PCM.CONSN ---
- General Info Date of Service: 07/20/18 Admission Dx/Problem (Free Text): Admission Diagnosis/Problem Admission Diagnosis/Problem Osteomyelitis of foot Subjective Update: Follow Up - Patient Data Vitals - Most Recent: Last Vital Signs Temp 36.0 C 07/21/18 08:00 Pulse 58 L 07/21/18 08:00 Resp 20 07/21/18 08:00 BP 108/78 07/21/18 08:00 Pulse Ox 100 07/21/18 08:00 Weight - Most Recent: 105.778 kg I&O - Last 24 Hours: Intake & Output 07/20/18 07/21/18 07/21/18 22:59 06:59 14:59 Intake Total 4055 Output Total 85 70 75 Balance 3970 -70 -75 Lab Results Last 24 Hours: Laboratory Results - last 24 hr 07/20/18 07/20/18 07/20/18 Range/Units 11:06 17:28 21:44 WBC (3.98-10.04) K/mm3 RBC (3.98-5.22) M/mm3 Hgb (11.2-15.7) gm/L Hct (34.1-44.9) % MCV (79.4-94.8) fl MCH (25.6-32.2) pg MCHC (32.2-35.5) g/dl RDW Std Deviation (36.4-46.3) fL Plt Count (182-369) K/mm3 MPV (9.4-12.3) fl Neut % (Auto) Lymph % (Auto) [place] % (Auto) Eos % (Auto) Baso % (Auto) Neut # (Auto) Lymph # (Auto) [place] # (Auto) Eos # (Auto) Baso # (Auto) Neutrophils % (Manual) (40-60) % Band Neutrophils % (0-10) % Lymphocytes % (Manual) (20-40) % Atypical Lymphs % % Monocytes % (Manual) (2-10) % Eosinophils % (Manual) (0.7-5.8) % Basophils % (Manual) (0.1-1.2) Manual Slide Review Platelet Estimate Hypochromasia Anisocytosis Trevor Cells RBC Morph Comment Sodium (136-145) mEq/L Potassium (3.5-5.1) mEq/L Chloride (98-107) mEq/L Carbon Dioxide (21-32) mEq/L Anion Gap (5-15) BUN (7-18) mg/dL Creatinine (0.55-1.02) mg/dL Est Cr Clr Drug Dosing mL/min Estimated GFR (MDRD) (>60) mL/min BUN/Creatinine Ratio (14-18) Glucose (74-106) mg/dL POC Glucose 208 H 130 H 144 H (70-105) mg/dL Calcium (8.5-10.1) mg/dL Magnesium (1.8-2.4) mg/dl C-Reactive Protein (<1.0) mg/dL Vancomycin Trough (10.0-20.0) Blood Type Gel Antibody Screen 07/21/18 07/21/18 07/21/18 Range/Units 00:20 05:07 05:33 WBC 53.39 H (3.98-10.04) K/mm3 RBC 3.84 L (3.98-5.22) M/mm3 Hgb 10.8 L (11.2-15.7) gm/L Hct 32.3 L (34.1-44.9) % MCV 84.1 (79.4-94.8) fl MCH 28.1 (25.6-32.2) pg MCHC 33.4 (32.2-35.5) g/dl RDW Std Deviation 43.3 (36.4-46.3) fL Plt Count 365 (182-369) K/mm3 MPV 9.5 (9.4-12.3) fl Neut % (Auto) Cancelled Lymph % (Auto) Cancelled [place] % (Auto) Cancelled Eos % (Auto) Cancelled Baso % (Auto) Cancelled Neut # (Auto) Cancelled Lymph # (Auto) Cancelled [place] # (Auto) Cancelled Eos # (Auto) Cancelled Baso # (Auto) Cancelled Neutrophils % (Manual) 93 H (40-60) % Band Neutrophils % 0 (0-10) % Lymphocytes % (Manual) 5 L (20-40) % Atypical Lymphs % 0 % Monocytes % (Manual) 2 (2-10) % Eosinophils % (Manual) 0 L (0.7-5.8) % Basophils % (Manual) 0 L (0.1-1.2) Manual Slide Review Cancelled Platelet Estimate Adequate Hypochromasia 1+ slight Anisocytosis 2+ moderate Trevor Cells RBC Morph Comment Abnormal Sodium (136-145) mEq/L Potassium (3.5-5.1) mEq/L Chloride (98-107) mEq/L Carbon Dioxide (21-32) mEq/L Anion Gap (5-15) BUN (7-18) mg/dL Creatinine (0.55-1.02) mg/dL Est Cr Clr Drug Dosing mL/min Estimated GFR (MDRD) (>60) mL/min BUN/Creatinine Ratio (14-18) Glucose (74-106) mg/dL POC Glucose 139 H (70-105) mg/dL Calcium (8.5-10.1) mg/dL Magnesium (1.8-2.4) mg/dl C-Reactive Protein (<1.0) mg/dL Vancomycin Trough 34.1 H (10.0-20.0) Blood Type Gel Antibody Screen 07/21/18 07/21/18 Range/Units 05:33 05:33 WBC (3.98-10.04) K/mm3 RBC (3.98-5.22) M/mm3 Hgb (11.2-15.7) gm/L Hct (34.1-44.9) % MCV (79.4-94.8) fl MCH (25.6-32.2) pg MCHC (32.2-35.5) g/dl RDW Std Deviation (36.4-46.3) fL Plt Count (182-369) K/mm3 MPV (9.4-12.3) fl Neut % (Auto) Lymph % (Auto) [place] % (Auto) Eos % (Auto) Baso % (Auto) Neut # (Auto) Lymph # (Auto) [place] # (Auto) Eos # (Auto) Baso # (Auto) Neutrophils % (Manual) (40-60) % Band Neutrophils % (0-10) % Lymphocytes % (Manual) (20-40) % Atypical Lymphs % % Monocytes % (Manual) (2-10) % Eosinophils % (Manual) (0.7-5.8) % Basophils % (Manual) (0.1-1.2) Manual Slide Review Platelet Estimate Hypochromasia Anisocytosis Trevor Cells RBC Morph Comment Sodium 133 L (136-145) mEq/L Potassium 5.2 H (3.5-5.1) mEq/L Chloride 108 H (98-107) mEq/L Carbon Dioxide 8 L* (21-32) mEq/L Anion Gap 22.2 H (5-15) BUN 64 H (7-18) mg/dL Creatinine 4.2 H (0.55-1.02) mg/dL Est Cr Clr Drug Dosing 16.83 mL/min Estimated GFR (MDRD) 12 (>60) mL/min BUN/Creatinine Ratio 15.2 (14-18) Glucose 142 H (74-106) mg/dL POC Glucose (70-105) mg/dL Calcium 7.3 L (8.5-10.1) mg/dL Magnesium 2.0 (1.8-2.4) mg/dl C-Reactive Protein 12.2 H* (<1.0) mg/dL Vancomycin Trough (10.0-20.0) Blood Type O POSITIVE Gel Antibody Screen Negative Burt Results Last 24 Hours: Microbiology 07/18/18 17:20 Gram Stain - Final Toe, Left - Left Fourth Anaerobic Culture - Preliminary Beta Streptococcus Group B 07/17/18 22:30 Aerobic Blood Culture - Preliminary Blood - Venous NO GROWTH AFTER 3 DAYS Anaerobic Blood Culture - Preliminary NO GROWTH AFTER 3 DAYS 07/17/18 22:35 Aerobic Blood Culture - Preliminary Blood - Venous - Lab Draw NO GROWTH AFTER 3 DAYS Anaerobic Blood Culture - Preliminary NO GROWTH AFTER 3 DAYS Med Orders - Current: Current Medications Acetaminophen (Tylenol) 650 mg PO Q4H PRN PRN Reason: Pain (Mild 1-3)/fever Last Admin: 07/20/18 03:56 Dose: 650 mg Hydrocodone Bitart/Acetaminophen ([place] 325-5 Mg) 1 tab PO Q4H PRN PRN Reason: Pain (moderate 4-6) Last Admin: 07/20/18 02:06 Dose: 1 tab Albuterol/Ipratropium (Duoneb 3.0-0.5 Mg/3 Ml) 3 ml NEB Q4H PRN PRN Reason: Shortness Of Breath/wheezing Amlodipine Besylate (Norvasc) 10 mg PO DAILY [facility] Last Admin: 07/18/18 09:18 Dose: Not Given Bisacodyl (Dulcolax) 5 mg PO DAILY PRN PRN Reason: Constipation Carvedilol (Coreg) 25 mg PO DAILY [facility] Last Admin: 07/18/18 09:18 Dose: Not Given Dextrose/Water (Dextrose 50% In Water) 50 ml IV ASDIRECTED PRN PRN Reason: Hypoglycemia Docusate Sodium (Colace) 100 mg PO BID PRN PRN Reason: Constipation Last Admin: 07/20/18 10:58 Dose: 100 mg Duloxetine HCl (Cymbalta) 30 mg PO BID [facility] Last Admin: 07/21/18 09:21 Dose: Not Given Furosemide (Lasix) 40 mg PO DAILY [facility] Last Admin: 07/18/18 09:18 Dose: Not Given Hydralazine HCl (Apresoline) 20 mg IVPUSH Q4H PRN PRN Reason: Hypertension Hydrocortisone Sodium Succinate (Solu-Cortef) 100 mg IVPUSH Q6H [facility] Last Admin: 07/21/18 05:25 Dose: Not Given Hydromorphone HCl (Dilaudid) 1 mg IVPUSH Q6H PRN PRN Reason: Pain (severe 7-10) Last Admin: 07/20/18 21:23 Dose: 1 mg Hydroxyzine HCl (Atarax) 25 mg PO BID [facility] Last Admin: 07/21/18 09:21 Dose: Not Given Sodium Chloride (Normal Saline) 1,000 mls @ 250 mls/hr IV ASDIRECTED [facility] Last Admin: 07/20/18 21:22 Dose: 250 mls/hr Norepinephrine Bitartrate 4 mg (/ Dextrose/Water) 250 mls @ 7.5 mls/hr IV TITRATE [facility]; Protocol Last Titration: 07/20/18 14:45 Dose: 0 mcg/min, 0 mls/hr Levofloxacin/Dextrose (Levaquin In D5w 250 Mg/50 Ml) 100 mls @ 100 mls/hr IV Q48H [facility] Piperacillin Sod/Tazobactam (Sod 4.5 gm/ Sodium Chloride) 100 mls @ 25 mls/hr IV Q12H [facility] Last Admin: 07/21/18 03:09 Dose: Not Given Albumin Human (Flexbumin 25%) 12.5 gm in 50 mls @ 50 mls/hr IV BID [facility] Last Admin: 07/21/18 09:21 Dose: Not Given Sodium Bicarbonate 50 meq/ (Sodium Chloride) 300 mls @ 75 mls/hr IV ONETIME ONE Stop: 07/21/18 12:29 Last Admin: 07/21/18 09:21 Dose: Not Given Insulin Glargine (Lantus) 15 unit SUBCUT DAILY [facility] Last Admin: 07/21/18 08:00 Dose: Not Given Insulin Human Lispro (Humalog) 0 unit SUBCUT QIDACANDBED [facility]; Protocol Last Admin: 07/21/18 06:02 Dose: Not Given Lisinopril (Prinivil) 20 mg PO BID [facility] Last Admin: 07/18/18 09:18 Dose: Not Given Lorazepam (Ativan) 1 mg IV Q6H PRN PRN Reason: Anxiety Last Admin: 07/20/18 03:58 Dose: 1 mg Magnesium Sulfate (Pharmacy To Dose - Magnesium Replacement) 0 dose .XX ASDIRECTED PRN PRN Reason: RX TO WATCH MAG Metoprolol Tartrate (Lopressor) 5 mg IVPUSH Q4H PRN PRN Reason: Tachycardia Midodrine (Midodrine) 5 mg PO TIDAC [facility] Last Admin: 07/21/18 06:03 Dose: Not Given Ondansetron HCl (Zofran) 4 mg IV Q6H PRN PRN Reason: Nausea/Vomiting Last Admin: 07/18/18 13:00 Dose: 4 mg Oxycodone HCl (Oxycontin) 10 mg PO Q12HR [facility] Last Admin: 07/20/18 20:14 Dose: 10 mg Pantoprazole Sodium (Protonix) 40 mg PO ACBREAKFAST [facility] Last Admin: 07/21/18 05:25 Dose: Not Given Polyethylene Glycol (Miralax) 17 gm PO DAILY PRN PRN Reason: Constipation Potassium Chloride (Pharmacy To Dose - Potassium Replacement) 0 dose .XX ASDIRECTED PRN PRN Reason: RX TO WATCH K Rosuvastatin Calcium (Crestor) 20 mg PO BEDTIME [facility] Last Admin: 07/20/18 20:14 Dose: 20 mg Saccharomyces Boulardii (Florastor) 250 mg PO BID [facility] Last Admin: 07/21/18 09:21 Dose: Not Given Senna/Docusate Sodium (Senna Plus) 1 tab PO BID PRN PRN Reason: Constipation Temazepam (Restoril) 15 mg PO BEDTIME PRN PRN Reason: Insomnia Last Admin: 07/20/18 21:45 Dose: 15 mg Discontinued Medications Dextrose/Water (Dextrose 50% In Water) 50 ml IVPUSH ASDIRECTED PRN PRN Reason: Hypoglycemia Diphenhydramine HCl (Benadryl) 25 mg IVPUSH ONETIME ONE Stop: 07/19/18 22:50 Last Admin: 07/19/18 22:56 Dose: 25 mg Diphenhydramine HCl (Benadryl) Confirm Administered Dose 50 mg .ROUTE .STK-MED ONE Stop: 07/19/18 22:52 Last Admin: 07/19/18 22:57 Dose: Not Given Enoxaparin Sodium (Lovenox) 30 mg SUBCUT DAILY [facility] Last Admin: 07/19/18 10:34 Dose: 30 mg Hydromorphone HCl (Dilaudid) 0.5 mg IVPUSH Q2H PRN PRN Reason: Pain (severe 7-10) Hydromorphone HCl (Dilaudid) 1 mg IVPUSH Q6HR PRN PRN Reason: Pain Last Admin: 07/18/18 01:20 Dose: 1 mg Hydromorphone HCl (Dilaudid) 2 mg IVPUSH Q4H PRN PRN Reason: Pain Last Admin: 07/18/18 14:15 Dose: 1 mg Hydromorphone HCl (Dilaudid) 1 mg IVPUSH Q4H PRN PRN Reason: Pain (severe 7-10) Last Admin: 07/19/18 13:36 Dose: 1 mg Metronidazole 500 mg/ Premix 100 mls @ 100 mls/hr IV Q8H [facility] Last Admin: 07/18/18 00:02 Dose: Not Given Vancomycin HCl 1.5 gm/ Sodium (Chloride) 250 mls @ 250 mls/hr IV Q12H [facility] Last Admin: 07/18/18 00:03 Dose: Not Given Vancomycin HCl 1.25 gm/ Sodium (Chloride) 250 mls @ 250 mls/hr IV Q24H [facility] Last Admin: 07/17/18 23:55 Dose: 250 mls/hr Levofloxacin/Dextrose 750 mg/ (Premix) 150 mls @ 100 mls/hr IV Q48H [facility] Last Admin: 07/18/18 00:03 Dose: Not Given Sodium Chloride (Normal Saline) 1,000 mls @ 125 mls/hr IV ASDIRECTED [facility] Last Admin: 07/18/18 06:37 Dose: 125 mls/hr Levofloxacin/Dextrose 750 mg/ (Premix) 150 mls @ 100 mls/hr IV Q48H [facility] Piperacillin Sod/Tazobactam (Sod 4.5 gm/ Sodium Chloride) 100 mls @ 25 mls/hr IV Q8H [facility] Last Admin: 07/20/18 02:09 Dose: 25 mls/hr Sodium Chloride (Normal Saline) 500 mls @ 999 mls/hr IV .BOLUS ONE Stop: 07/18/18 00:00 Last Admin: 07/17/18 23:53 Dose: 999 mls/hr Sodium Chloride (Normal Saline) 1,000 mls @ 125 mls/hr IV ASDIRECTED [facility] Potassium Chloride 10 meq/ (Premix) 100 mls @ 100 mls/hr IV Q1H [facility] Stop: 07/18/18 05:59 Piperacillin Sod/Tazobactam (Sod 4.5 gm/ Sodium Chloride) 100 mls @ 200 mls/hr IV ONETIME ONE Stop: 07/18/18 03:29 Last Admin: 07/18/18 02:26 Dose: 200 mls/hr Magnesium Sulfate 4 gm/ Premix 50 mls @ 12.5 mls/hr IV ONETIME ONE Stop: 07/18/18 13:59 Last Admin: 07/18/18 09:59 Dose: 12.5 mls/hr Sodium Chloride (Normal Saline) 1,000 mls @ 999 mls/hr IV .BOLUS ONE Stop: 07/18/18 10:53 Last Admin: 07/18/18 09:59 Dose: 999 mls/hr Vancomycin HCl 1 gm/Vancomycin HCl 250 mg/ Sodium Chloride 250 mls @ 166.667 mls/hr IV Q24H [facility] Last Admin: 07/19/18 23:54 Dose: Not Given Levofloxacin/Dextrose 500 mg/ (Premix) 100 mls @ 100 mls/hr IV Q24H [facility] Last Admin: 07/19/18 22:17 Dose: 100 mls/hr Sodium Chloride (Normal Saline) 1,000 mls @ 999 mls/hr IV ONETIME ONE Stop: 07/18/18 23:15 Last Infusion: 07/18/18 23:50 Dose: 250 mls/hr Vancomycin HCl 0.75 gm/ Sodium (Chloride) 250 mls @ 250 mls/hr IV Q24H [facility] Last Admin: 07/20/18 10:41 Dose: Not Given Sodium Chloride (Normal Saline) 1,000 mls @ 999 mls/hr IV ONETIME ONE Stop: 07/19/18 23:24 Last Admin: 07/20/18 01:35 Dose: Not Given Vancomycin HCl 1 gm/ Sodium (Chloride) 250 mls @ 250 mls/hr IV Q36H [facility] Last Admin: 07/20/18 10:56 Dose: 250 mls/hr Midodrine (Midodrine) 5 mg PO TIDAC [facility] Stop: 07/19/18 07:01 Last Admin: 07/19/18 08:19 Dose: 5 mg Midodrine (Midodrine) 5 mg PO NOW STA Stop: 07/18/18 09:53 Last Admin: 07/18/18 10:25 Dose: 5 mg Norepinephrine Bitartrate (Levophed) Confirm Administered Dose 4 mg .ROUTE .STK- MED ONE Stop: 07/19/18 22:28 Last Admin: 07/20/18 08:28 Dose: Not Given Potassium Chloride (Klor-Con M20) 40 meq PO Q4H [facility] Stop: 07/18/18 05:31 Last Admin: 07/18/18 05:53 Dose: 40 meq Potassium Chloride (Klor-Con M20) 40 meq PO ONETIME ONE Stop: 07/18/18 10:01 Last Admin: 07/18/18 09:58 Dose: 40 meq Temazepam (Restoril) 7.5 mg PO BEDTIME PRN PRN Reason: Sleep Vancomycin HCl (Pharmacy To Dose - Vancomycin) 0 dose .XX ASDIRECTED PRN PRN Reason: RX TO DOSE VANCO Vancomycin HCl (Vancomycin) 1,136.25 mg 15 mg/kg (1136.25 mg) IV Q12H [facility] Last Admin: 07/18/18 01:38 Dose: Not Given - Exam Physical Findings Comments:: L foot: erythema has decreased as well as swelling compared to Sunday, small area of white discoloration on the plantar aspect below the fourth MTP but no active drainage, previous small open area on fourth toe is closed over with no drainage, sever tenderness to palpation and squeeze test to left foot, no streaking noted and able to move left ankle Consult PN Assessment/Plan Procedures: Procedures ASSAY OF LACTIC ACID (04/20/18) COMPLETE CBC W/AUTO DIFF WBC (04/20/18) COMPREHEN METABOLIC PANEL (04/20/18) EMERGENCY DEPT VISIT (06/16/18) EMERGENCY DEPT VISIT (04/20/18) GLUCOSE BLOOD TEST (04/20/18) HYDRATE IV INFUSION ADD-ON (04/20/18) ROUTINE VENIPUNCTURE (04/20/18) THER/PROPH/DIAG INJ IV PUSH (04/20/18) THER/PROPH/DIAG IV INF INIT (06/16/18) TX/PRO/DX INJ NEW DRUG ADDON (06/16/18) X-RAY EXAM OF TOE(S) (06/16/18) Problem List Initiated/Reviewed/Updated: Yes Plan: A: left foot cellulitis and osteomyelitis P: On Sunday the patient was transferred to the ICU and was becoming more medically unstable. The MRI showed osteomyelitis but no abscess and we observed to see how she responded to IV antibiotics. There is concern she is not responding and secondary to this even though there is no definitive abscess she has severe chronic osteomyelitis and I believe we should proceed with irrigation and debridement of left foot with fourth ray amputation and possible wound vac placement in the morning. The risks, benefits, complication, and alternatives were discussed with patient with the nurse present. Patient has been very lethargic and doesn't respond much every time I have seen her so I did ask the nurse to make sure she makes her own medical decisions before surgery in the morning.
[2018-07-21] MEDS ORDERED: Levofloxacin/Dextrose 5%-Water 100 ML IV SCH (22:00)
== END 2018-07-21 09:17 | DRG 872 ==
LOC: JD.ED 19:12 → EEVIPCON 22:33 → JD.MS 22:33 → JD.ICU 07-18 16:56
PROVIDERS: ADMIT Internal Medicine; ATTEND Internal Medicine
DX: A41.9 Sepsis, unspecified organism (principal); M86.172 Other acute osteomyelitis, left ankle and foot; L03.116 Cellulitis of left lower limb; E46 Unspecified protein-calorie malnutrition; N17.9 Acute kidney failure, unspecified; E87.2 Acidosis; N18.4 Chronic kidney disease, stage 4 (severe); R65.20 Severe sepsis without septic shock; I12.9 Hypertensive chronic kidney disease with stage 1 through stage 4 chronic kidney disease, or unspecified chronic kidney disease; E78.5 Hyperlipidemia, unspecified; J45.909 Unspecified asthma, uncomplicated; E11.22 Type 2 diabetes mellitus with diabetic chronic kidney disease; E11.42 Type 2 diabetes mellitus with diabetic polyneuropathy; E11.69 Type 2 diabetes mellitus with other specified complication; E11.65 Type 2 diabetes mellitus with hyperglycemia; D64.9 Anemia, unspecified; E87.5 Hyperkalemia; B19.20 Unspecified viral hepatitis C without hepatic coma; F41.9 Anxiety disorder, unspecified; F32.9 Major depressive disorder, single episode, unspecified; E78.00 Pure hypercholesterolemia, unspecified; L30.9 Dermatitis, unspecified; H54.7 Unspecified visual loss; Z90.710 Acquired absence of both cervix and uterus; Z87.891 Personal history of nicotine dependence; Z68.26 Body mass index [BMI] 26.0-26.9, adult; Z88.8 Allergy status to other drugs, medicaments and biological substances; Z88.5 Allergy status to narcotic agent; Z91.013 Allergy to seafood; Z79.899 Other long term (current) drug therapy; Z79.4 Long term (current) use of insulin
CPT/HCPCS: 36415; 36430; 51702; 73700-26-LT; 73700-LT; 73718-26-LT; 73718-LT; 76770; 76770-26; 80048; 80053; 80061; 80202; 81001; 82043; 82533; 82962; 83036; 83605; 83735; 84145; 84703; 85007; 85025; 85027; 86140; 86850; 86900; 86901; 86922; 87040; 87075; 87205; 87641; 97162-GP; 97165-GO; 97530-GP; 99284; 99285-25; A9270-GY; J1170; J1200; J1650; J1720; J1815-GY; J1956; J2060; J2405; J2543; J3370; J3475; J7030; J7040; J7050; J7060; P9016